=== PATIENT | female | born 1970 | race Caucasian/White ===

== ENCOUNTER → 2018-06-08 09:41 | Outpatient (CLI) | payer BC, SELFPAY ==
--- NOTE | 2018-06-08 09:41 | DI.REPORT_ITS ---
SYMPTOM/DIAGNOSIS: CHRONIC RIGHT SHOULDER PAIN, M25.511 RIGHT SHOULDER: 06/08 Five views were obtained. No bony or soft tissue abnormality seen.
== END ==
PROVIDERS: PCP Family Medicine; Visit Provider Family Medicine
DX: M25.511 Pain in right shoulder (principal); G89.29 Other chronic pain
CPT/HCPCS: 73030

== ENCOUNTER 2018-08-15 11:08 | Outpatient (CLI) | payer BC, SELFPAY ==
[2018-08-15 13:04] LABS: Abs Immature Grans 0.01 k/cumm (0.0-0.09); Absolute Basophil Count 0.04 k/cumm (0.0-0.2); Absolute Eosinophil Count 0.07 k/cumm (0.0-0.7); Absolute Lymphocyte Count 0.79 k/cumm (1.2-3.4); Absolute Monocyte Count 0.33 k/cumm (0.11-0.7); Absolute Neutrophil Count 3.49 k/cumm (1.2-6.7); Basophils % 0.8; Eosinophils % 1.5; HCT 39.4 % (36.0-46.0); HGB 12.8 g/dL (12.0-15.5); Immature Grans % 0.2; Lymphocytes % 16.7; Mean Corp. HGB Concentration 32.5 g/dL (32.0-36.0); Mean Corpuscular Hemoglobin 29.8 pg (27.0-33.0); Mean Corpuscular Volume 91.8 fL (80-95); Mean Platelet Volume 11.5 fL (8.0-11.0); Neutrophils % 73.8; Platelet Count 199 x1000/uL (130-400); RBC 4.29 m/cumm (4.00-5.20); White Blood Cell Count 4.73 k/cumm (4.4-10.8)
[2018-08-15 13:30] LABS: ALT 20 U/L (12-78); AST 16 U/L (15-37); Albumin 3.9 g/dL (3.4-5.0); Alkaline Phosphatase 71 U/L (46-116); Anion Gap 8.9 mmol/L (3-11); BUN 19 mg/dL (7-18); Bilirubin, Total 0.3 mg/dL (0.2-1.0); CO2 28.1 mmol/L (21.0-32.0); CREATININE 0.81 mg/dL (0.55-1.02); Calcium 9.4 mg/dL (8.5-10.1); Chloride 105 mmol/L (98-107); Cholesterol 247 mg/dL (50-200); Glucose 94 mg/dL (70-100); HDL Cholesterol 53 mg/dL (40-60); LDL CHOLESTEROL 164 mg/dL (<100); Potassium 4.2 mmol/L (3.5-5.1); Sodium 142 mmol/L (136-145); TSH (W/Ref FT4) 0.83 uIU/mL (0.358-3.74); Total Protein 7.1 g/dL (6.4-8.2); Triglyceride 185 mg/dL (30-150); Vitamin B12 1321 pg/mL (193-986)
== END 2018-08-15 11:28 ==
PROVIDERS: PCP Family Medicine; Visit Provider Family Medicine
DX: F32.9 Major depressive disorder, single episode, unspecified (principal); K51.90 Ulcerative colitis, unspecified, without complications; Z90.49 Acquired absence of other specified parts of digestive tract; Z00.00 Encounter for general adult medical examination without abnormal findings
CPT/HCPCS: 36415; 80053; 80061; 83721; 82607; 84443; 85025

== ENCOUNTER 2019-06-05 13:34 | Emergency (ER) | payer OTHER, SELFPAY ==
[2019-06-05 13:44] VITALS: BP 144/96; PULSE 111; RESP 20; TEMP 36.5; O2SAT 98
--- NOTE | 2019-06-05 13:49 | ED.GENADUL_ITS ---
Discharge Plan Disposition Patient Disposition: HOME Condition: Stable Discharge Details Chief Complaint: PsychEval Clinical Impression: Anxiety Primary Care Provider: Oneal Garcia ED Provider: Yani Helton Home Meds and New Rx's Prescriptions: Continued albuterol sulfate 90 mcg/actuation HFA aerosol inhaler 2 puff IH Q4H PRNRF: 0 venlafaxine 75 mg tablet extended release 24hr 75 mg PO DAILY Qty: 30 RF: 11 clonazepam 1 mg tablet 1 mg PO BID Qty: 60 RF: 5 multivitamin [Daily Multi-Vitamin] 1 EACH tablet 1 ea PO DAILY PRN RF: 0 cyanocobalamin (vitamin B-12) [Vitamin B-12] 1,000 MCG tablet 1,000 mcg PO DAILY Qty: 100 RF: 4 ferrous gluconate 325 MG tablet 325 mg PO BID Qty: 100 RF: 6 cholecalciferol (vitamin D3) [Vitamin D3] 2,000 UNIT capsule 1 cap PO DAILY RF: 0 venlafaxine 150 mg capsule,extended release 24hr 150 mg PO DAILY Qty: 30 RF: 11 cyclobenzaprine 5 mg tablet 5 - 10 mg PO TID PRN (Reason: muscle spasm) Qty: 60 RF: 0 No Action quetiapine 50 mg tablet 100 mg PO BID RF: 0 Discharge Instructions Instructions: Suicide Prevention for Adults (ED), Anxiety (ED) Additional Instructions: Please return immediately to the emergency department if you develop any new or worsening symptoms or if you become otherwise concerned. It is extremely important that you attend your scheduled appointment with your therapist this week, and also that you follow-up with your primary care doctor as scheduled. Referrals: Oneal Garcia [Primary Care Provider] - Discharge Data Discharge Date/Time-TO BE ENTERED AT DEPARTURE: 06/05/19 16:24 Medical Decision Making Roshni Hayes is a 49-year-old woman with a history of anxiety, depression, hyperlipidemia who presented to the emergency department with anxiety, feeling that she is crying uncontrollably after having upsetting discussions with her , also with suicidal thoughts last night. On exam patient is nontoxic- appearing, but is very tearful. She does calm down for brief periods and converses normally. Mild tachycardia, otherwise benign cardiopulmonary exam. Grossly nonfocal neurologic exam. Concern for anxiety, possible suicidal ideation. Doubt toxic ingestion. Exam/history is not consistent with ACS, PE, sepsis. Plan for EKG, screening labs, one-to-one observer, mental health consultation. Patient evaluated by mental health, who reports that patient contracted for safety and would like to go home at this time. Patient feels comfortable going to her own home, has a friend to help her should she need it. On my re assessment, patient is well and nontoxic appearing, pleasant, conversing normally. She reports that she feels much better at this point. No further tachycardia. Patient states that she occasionally has suicidal type thoughts as she did last night, but she states repeatedly that she would not actually harm herself. Patient reports that she will be going to her home where she will not be seeing her , who she states tends to trigger her anxiety. Patient's friend reports that she believes that patient is safe to go home at this time as well. I had a lengthy discussion with the patient regarding return to emergency department precautions, that she may return to the emergency department at any time, and importance of outpatient follow-up with both her therapist as scheduled this Wednesday and with her primary care doctor as scheduled on Wednesday. Patient verbalizes understanding the plan and is amenable. All questions were answered. Patient was discharged home with clear plan for outpatient follow-up. Medical Records Medical records reviewed: Yes I reviewed the patient's medical records. Lab Data Lab results reviewed: Yes I reviewed the patient's lab results. Laboratory Tests Range/Units 06/05/19 06/05/19 06/05/19 13:58 13:58 14:42 WBC (4.4-10.8) k/cumm RBC (4.00-5.20) m/cumm Hgb (12.0-15.5) g/dL Hct (36.0-46.0) % MCV (80-95) fL MCH (27.0-33.0) pg MCHC (32.0-36.0) g/dL RDW (11.7-14.6) % Plt Count (130-400) x1000/uL MPV (8.0-11.0) fL Immature Gran % Neutrophils % Lymphocytes % Monocytes % Eosinophils % Basophils % Absolute Neutrophils (1.2-6.7) k/cumm Absolute Lymphocytes (1.2-3.4) k/cumm Absolute Monocytes (0.11-0.7) k/cumm Absolute Eosinophils (0.0-0.7) k/cumm Absolute Basophils (0.0-0.2) k/cumm Sodium (136-145) mmol/L 140 Potassium (3.5-5.1) mmol/L 3.5 Chloride (98-107) mmol/L 104 Carbon Dioxide (21.0-32.0) mmol/L 25.4 Anion Gap (3-11) mmol/L 10.6 BUN (7-18) mg/dL 9 Creatinine (0.55-1.02) mg/dL 0.76 Estimated GFR/1.73 m2 (mL/min/1.73m2) >= 60.00 Glucose (70-100) mg/dL 86 Calcium (8.5-10.1) mg/dL 8.7 Total Bilirubin (0.2-1.0) mg/dL 0.2 AST (15-37) U/L 12 L ALT (12-78) U/L 24 Alkaline Phosphatase (46-116) U/L 74 Total Protein (6.4-8.2) g/dL 6.7 Albumin (3.4-5.0) g/dL 3.2 L Urine Color (Yellow) Yellow Urine Clarity (Clear) Clear Urine pH (5-8) 5.5 Ur Specific [place] (1.005-1.025) <= 1.005 Urine Protein (Negative) mg/dL Negative Urine Ketones (Negative) mg/dL Negative Urine Blood (Negative) Negative Urine Nitrite (Negative) Negative Urine Bilirubin (Negative) Negative Urine Urobilinogen (Up TO 0.2) EU/dL 0.2 Ur Leukocyte Esterase (Negative) Negative Urine Glucose (Negative) mg/dL Negative Urine Opiates Screen (Negative) Negative Urine Methadone Screen (Negative) Negative Acetaminophen (10-30) ug/mL < 2 L Ur Barbiturates Screen (Negative) Negative Ur Tricyclics Screen (Negative) Negative Ur Amphetamines Screen (Negative) Negative U Benzodiazepines Scrn (Negative) Negative Urine Cocaine Screen (Negative) Negative Ur THC Screen (Negative) Negative Ethyl Alcohol (<3) mg/dL 13.3 Range/Units 06/05/19 14:42 WBC (4.4-10.8) k/cumm 6.76 RBC (4.00-5.20) m/cumm 4.32 Hgb (12.0-15.5) g/dL 12.6 Hct (36.0-46.0) % 38.1 MCV (80-95) fL 88.2 MCH (27.0-33.0) pg 29.2 MCHC (32.0-36.0) g/dL 33.1 RDW (11.7-14.6) % 13.4 Plt Count (130-400) x1000/uL 182 MPV (8.0-11.0) fL 10.5 Immature Gran % 0.3 Neutrophils % 78.3 Lymphocytes % 12.9 Monocytes % 7.1 Eosinophils % 1.0 Basophils % 0.4 Absolute Neutrophils (1.2-6.7) k/cumm 5.29 Absolute Lymphocytes (1.2-3.4) k/cumm 0.87 L Absolute Monocytes (0.11-0.7) k/cumm 0.48 Absolute Eosinophils (0.0-0.7) k/cumm 0.07 Absolute Basophils (0.0-0.2) k/cumm 0.03 Sodium (136-145) mmol/L Potassium (3.5-5.1) mmol/L Chloride (98-107) mmol/L Carbon Dioxide (21.0-32.0) mmol/L Anion Gap (3-11) mmol/L BUN (7-18) mg/dL Creatinine (0.55-1.02) mg/dL Estimated GFR/1.73 m2 (mL/min/1.73m2) Glucose (70-100) mg/dL Calcium (8.5-10.1) mg/dL Total Bilirubin (0.2-1.0) mg/dL AST (15-37) U/L ALT (12-78) U/L Alkaline Phosphatase (46-116) U/L Total Protein (6.4-8.2) g/dL Albumin (3.4-5.0) g/dL Urine Color (Yellow) Urine Clarity (Clear) Urine pH (5-8) Ur Specific [place] (1.005-1.025) Urine Protein (Negative) mg/dL Urine Ketones (Negative) mg/dL Urine Blood (Negative) Urine Nitrite (Negative) Urine Bilirubin (Negative) Urine Urobilinogen (Up TO 0.2) EU/dL Ur Leukocyte Esterase (Negative) Urine Glucose (Negative) mg/dL Urine Opiates Screen (Negative) Urine Methadone Screen (Negative) Acetaminophen (10-30) ug/mL Ur Barbiturates Screen (Negative) Ur Tricyclics Screen (Negative) Ur Amphetamines Screen (Negative) U Benzodiazepines Scrn (Negative) Urine Cocaine Screen (Negative) Ur THC Screen (Negative) Ethyl Alcohol (<3) mg/dL ECG Data Attestation: I personally reviewed and interpreted this ECG (s) as follows: Interpretation: EKG shows sinus rhythm at 77, normal axis, normal intervals, nondiagnostic EKG HPI General Mode of arrival: ambulatory . Date/Time Provider Initiated Documentation: 06/05/19 13:37 . Limitations to Documentation: no limitations . Information obtained by: patient, RN notes reviewed and old records reviewed . HPI Narrative: Roshni Hayes is a 49 y/o woman with history of depression, anxiety, hyperlipidemia, ulcerative colitis status post colectomy presenting to the emergency department with anxiety. Patient is accompanied by her best friend, who also provides history. Patient and her best friend report that patient is going through divorce, and last night she had a discussion with her that was very upsetting for her. Patient texted her friend at that point, stating that she did not want to be in pain anymore and she was looking for the razor blades. Patient and her friend state that her friend was able to calm her down and patient felt better and went to bed. Upon waking this morning, patient had another upsetting conversation with her , and again began to have sobbing that she felt she couldn't control and anxiety. Patient reports that she has not attempted to harm herself either currently or in the past. Patient reports that she took her usual dose of clonazepam this morning, and then took another at noon for her anxiety. Patient reports that clonazepam did not help at all. Patient also has had 2 alcoholic drinks today. Denies recreational drug use or any other ingestion in an attempt to harm herself. Patient states that despite having brief suicidal thoughts last night, she does not have a plan to hurt herself and would not do so. Patient denies somatic complaint, no fever, no vomiting, no pain. No recent illness. She states that she does not feel suicidal, but cannot stop crying. Patient reports that she feels safe at home. She states that nobody is harming her. She denies hallucinations. Related Data Home Medications Medication Instructions Recorded Confirmed multivitamin [Daily Multi-Vitamin] 1 ea PO DAILY PRN 01/15/13 06/06/19 cyanocobalamin (vitamin B-12) 1,000 mcg PO DAILY #100 tab-cap 10/05/15 06/06/19 [Vitamin B-12] ferrous gluconate 325 mg PO BID #100 tab 12/21/15 06/06/19 cholecalciferol (vitamin D3) 1 cap PO DAILY 06/16/17 06/06/19 [Vitamin D3] albuterol sulfate 90 mcg/actuation 2 puff IH Q4H PRN gm 07/01/18 06/06/19 aerosol inhaler venlafaxine 150 mg 150 mg PO DAILY #30 cap 09/27/18 06/06/19 capsule,extended release 24 hr cyclobenzaprine 5 mg tablet 5 - 10 mg PO TID PRN #60 tab 11/29/18 06/06/19 clonazepam 1 mg tablet 1 mg PO BID #60 tab 02/28/19 06/06/19 venlafaxine 75 mg tablet,extended 75 mg PO DAILY #30 tab 02/28/19 06/06/19 release 24 hr quetiapine 50 mg tablet 100 mg PO BID tab 06/06/19 06/06/19 Previous Rx's Medication Instructions Recorded venlafaxine 150 mg 150 mg PO DAILY #30 cap 09/27/18 capsule,extended release 24 hr cyclobenzaprine 5 mg tablet 5 - 10 mg PO TID PRN #60 tab 11/29/18 clonazepam 1 mg tablet 1 mg PO BID #60 tab 02/28/19 venlafaxine 75 mg tablet,extended 75 mg PO DAILY #30 tab 02/28/19 release 24 hr Allergies Allergy/AdvReac Type Severity Reaction Status Date / Time No Known Allergies Allergy Unverified 06/06/19 14:48 General Stated Complaint: PsychEval FLY: 2 Review of Systems Review of Systems Constitutional: denies fevers Eyes: denies eye pain ENT: denies facial pain, dental pain, sore throat Cardiovascular: denies chest pain Respiratory: denies SOB, cough GI: denies abdominal pain, vomiting, diarrhea : denies flank pain MSK: denies back pain, neck pain, arthralgias, myalgias Neuro: denies headaches, numbness, weakness Psych: Reports suicidal thoughts last night without suicidal intent, denies hallucinations, homicidal ideation [facility] Surgical History (Updated 08/10/18 @ 14:35 by [facility] [place]) Arthroplasty of knee (~1995) Total colectomy (~1989) Family History Mother No problems noted. Father Depression Sister Essential hypertension Depression Brother Depression Grandfather Neoplasm Grandfather No problems noted. Grandmother Stroke Grandmother Heart disease Sister Depression Sister No problems noted. Son Asthma Daughter Depression Social History Smoking/Tobacco Use Status: Never Alcohol Intake: current Alcohol Intake frequency: a few times a week Drug use: Never Substance use type: does not use Household members: other Details: 4 current occupation: TEACHER Pets and animals: Yes Pets and animals: dog(s), bird(s), iguana(s) and farm animals Duration: 15-30 minutes/day Frequency: 3-4 times per week Seatbelt use: always Drive intox or ride w/intox local truck driver: No Working smoke detector in home: Yes Fire extinguisher in home: Yes Carbon monox detector in home: Yes Firearms in home: Yes Firearms unloaded and locked: Yes Do you feel safe in your relationship?: Yes Exam Narrative Exam Narrative: Constitutional: well and [id number], very tearful during conversation HENT: head atraumatic/normocephalic/normal inspection, mucous membranes moist Eyes: conjunctiva normal, sclera normal, pupils 3mm b/l Neck: no stridor, normal ROM, trachea midline Chest: normal inspection Resp: normal work of breathing, LCTAB Cardio: normal rate, normal rhythm, no murmur appreciated GI: abdomen soft, non-tender, non-distended Skin: warm, dry, normal color, no rash Neuro: alert, not altered, grossly non-focal, normal tone Ext: no edema Psych: Persistent crying during initial encounter, normal affect, normal behavior Course Vital Signs Temperature 36.5 C 06/05/19 13:44 Pulse 111 H 06/05/19 13:44 Respiratory Rate 20 06/05/19 13:44 Blood Pressure 144/96 H 06/05/19 13:44 Pulse Oximetry 98 06/05/19 13:44 Temperature 36.5 C 06/05/19 13:44 Temperature Source Temporal Artery Scan 06/05/19 13:44 Pulse 111 H 06/05/19 13:44 Respiratory Rate 20 06/05/19 13:44 Blood Pressure 144/96 H 06/05/19 13:44 Blood Pressure Position Sitting 06/05/19 13:44 Pulse Oximetry 98 06/05/19 13:44 Oxygen Delivery Method Room Air 06/05/19 13:44 Oxygen Flow Rate 0 06/05/19 13:44 Pain Level 0 06/05/19 13:44
[2019-06-05 14:17] LABS: Bilirubin Negative (Negative); Blood Negative (Negative); Clarity Clear (Clear); Glucose Negative (Negative); Ketones Negative (Negative); Leukocyte Esterase Negative (Negative); Nitrite Negative (Negative); Specific Gravity <= 1.005 (1.005-1.025); Urobilinogen 0.2 EU/dL (Up TO 0.2); pH 5.5 (5-8)
[2019-06-05 14:19] LABS: *AMPHETAMINES SCREEN URINE Negative (Negative); *BARBITURATES SCREEN URINE Negative (Negative); *BENZODIAZEPINES SCREEN URINE Negative (Negative); Cannabinoids THC Negative (Negative); Cocaine Screen,Urine Negative (Negative); METHADONE URINE SCREEN Negative (Negative); OPIATES URINE SCREEN Negative (Negative)
[2019-06-05 14:20] LABS: Tricyclic Antidepressants Negative (Negative)
[2019-06-05] MEDS: LORazepam 0.5 MG TAB PO (14:20)
[2019-06-05 14:48] LABS: Abs Immature Grans 0.02 k/cumm (0.0-0.09); Absolute Basophil Count 0.03 k/cumm (0.0-0.2); Absolute Eosinophil Count 0.07 k/cumm (0.0-0.7); Absolute Lymphocyte Count 0.87 k/cumm (1.2-3.4); Absolute Monocyte Count 0.48 k/cumm (0.11-0.7); Absolute Neutrophil Count 5.29 k/cumm (1.2-6.7); Basophils % 0.4; HCT 38.1 % (36.0-46.0); HGB 12.6 g/dL (12.0-15.5); Immature Grans % 0.3; Lymphocytes % 12.9; Mean Corp. HGB Concentration 33.1 g/dL (32.0-36.0); Mean Corpuscular Hemoglobin 29.2 pg (27.0-33.0); Mean Corpuscular Volume 88.2 fL (80-95); Mean Platelet Volume 10.5 fL (8.0-11.0); Monocytes % 7.1; Neutrophils % 78.3; Platelet Count 182 x1000/uL (130-400); RBC 4.32 m/cumm (4.00-5.20); RBC Distribution Width 13.4 % (11.7-14.6); White Blood Cell Count 6.76 k/cumm (4.4-10.8)
[2019-06-05 15:06] LABS: ALT 24 U/L (12-78); AST 12 U/L (15-37); Albumin 3.2 g/dL (3.4-5.0); Alkaline Phosphatase 74 U/L (46-116); Anion Gap 10.6 mmol/L (3-11); BUN 9 mg/dL (7-18); Bilirubin, Total 0.2 mg/dL (0.2-1.0); CO2 25.4 mmol/L (21.0-32.0); CREATININE 0.76 mg/dL (0.55-1.02); Calcium 8.7 mg/dL (8.5-10.1); Chloride 104 mmol/L (98-107); ETHANOL BLOOD 13.3 mg/dL (<3); Glucose 86 mg/dL (70-100); Potassium 3.5 mmol/L (3.5-5.1); Sodium 140 mmol/L (136-145); Total Protein 6.7 g/dL (6.4-8.2)
[2019-06-05 15:19] LABS: Acetaminophen < 2 ug/mL (10-30)
[2019-06-05] MEDS: Ibuprofen 400 MG TAB PO (16:22)
--- NOTE | 2019-06-05 16:34 | PDOC.MHCN ---
Date of service: 06/05/19 Time of Service: 15:14 Mental Health Crisis Note Presenting Issue How did you arrive at the ED and why did you come: Client was admitted into the ER, as they reported that they were having suicidal thoughts. Client was transported by her friend, to the ER as the friend had been in contact with the patient over the last few days and was very concerned when the patient shared that she was looking for razor blades. Patient shared that she did not want to but, wanted to stop the emotional pain that she was experiencing. Precipitating Factors Client shared that she has been experiencing depression for at least two years, her recent family dynamics, coupled with lack of sleep, have impacted her ability to cope/regulate. She shared that she thinks that she just had a breakdown earlier today, due to her ex . Patient shared that she had uncontrollable sobbing, and feeling of helplessness. Typically when she starts to feel this way, she will do as the doctor prescribes, and reach out to schedule an appointment with her therapist, PCP Dr. Martinez and take a Clonazepam if needed. This time it didn't work the Patient shared that the Clonazepam didn't work, this time, she felt no effect. Patients friend reports that she was searching for razor blades, to help her not feel the pain anymore. When asked to clarify; patient shared that she was not intending to kill herself, that she has bumps on her arms and that she has been known to remove them in the past, with a razor blade similar to what her doctor has done previously. Disposition BEHAVIOR: When first entering the room the client appeared to be crying, suffering from a headache and quiet. She allowed her friend to share the details of what brought her in today. Her friend did a great job and eventually the patient started to add to the conversation. The patient was forthright, open about the events that had led her to the ER. Towards the end of the assessment the patient was laughing and joking. EYE CONTACT: Client at first, made very little eye contact but, after some medicine for her headache was able to make appropriate eye contact with this functional tester typewriters. MOOD: Client appeared to be exhausted when first meeting with her, towards the end of the conversation she appeared to perk back up, and was laughing and making jokes. AFFECT: Somber, to calm, to motivated to start baby steps to help herself to feel better. APPETITE: Yes. SLEEP(trouble falling/staying asleep: Typically - 8:30PM to 5:00PM (patient recently drove to [place], 12 hours there and 12 hours back, they returned on Wednesday, currently exhausted.) Plan Patient is going to return home and stay in constant touch with her friend that brought her in to the ER today, patient has identified this individual as a huge support for her. She is going to make sure the sharp objects are out of sight and not accessible. Patient has a follow up with her PCP Dr. Martinez, [facility], on Wednesday. Patient also has an appointment scheudled with their therapist for this wednesday. Patient has agreed that she woudl like to have weekly appointments at this point. Patient shared that she is going to try to reimplment things that make her feel better when she is at her best (painting rocks with her son, getting ready for the school year, walking, and eating better). Provisional Diagnosis Major Depressive Disorder, recurrent, generalized anxiety disorder, hyperlipidemia, sciatica of right side Signature Clinician's Name/Title: Jenae Yin
[2019-06-05 17:25] LABS: Total Iron Binding Capacity 424 ug/dL (250-450)
== END 2019-06-05 16:24 | disposition home or self-care (01) ==
PROVIDERS: Emergency Provider Student in an Organized Health Care Education/Training Program; PCP Family Medicine
DX: F41.8 Other specified anxiety disorders (principal)
CPT/HCPCS: 36415; 80053; 80307; 81025; 93005; 99284; 80320; 80329; 81003; 83550; 85025; 93010

== ENCOUNTER 2019-11-02 14:33 | Emergency (ER) | payer BC, SELFPAY ==
[2019-11-02 14:36] VITALS: BP 128/63; PULSE 71; RESP 14; TEMP 36.5; O2SAT 96
--- NOTE | 2019-11-02 14:50 | W.ED.GENAD ---
Discharge Plan Disposition Patient Disposition: [facility] Condition: Stable Discharge Details Chief Complaint: PsychEval Clinical Impression: Depressive disorder Primary Care Provider: Oneal Garcia ED Provider: Wil Morris Home Meds and New Rx's Prescriptions: No Action albuterol sulfate 90 mcg/actuation HFA aerosol inhaler 2 puff IH Q4H PRNRF: 0 quetiapine 50 mg tablet 100 mg PO QHS RF: 0 venlafaxine 75 mg tablet extended release 24hr 75 mg PO DAILY Qty: 30 RF: 11 multivitamin [Daily Multi-Vitamin] 1 EACH tablet 1 ea PO DAILY PRN RF: 0 cyanocobalamin (vitamin B-12) [Vitamin B-12] 1,000 MCG tablet 1,000 mcg PO DAILY Qty: 100 RF: 4 ferrous gluconate 325 MG tablet 325 mg PO BID Qty: 100 RF: 6 cholecalciferol (vitamin D3) [Vitamin D3] 2,000 UNIT capsule 1 cap PO DAILY RF: 0 clonazepam 1 mg tablet 1 mg PO BID Qty: 60 RF: 5 venlafaxine 150 mg capsule,extended release 24hr 150 mg PO DAILY Qty: 30 RF: 11 Medical Decision Making 49 yo female with hx of depression comes in with increasing depression over months and vague Si. [facility] but needs medical clearance. Denies any fevers, chills, chest pain and has no focal neuro deficits and clear speech. Jessica alcohol or drug use. Has no findings on hx or exam to suggest underlying medical process, will order basic lab work and drug screening pt remains stable, labs unremarkable. Has bed placement at [facility] and will go by all terrain vehicle technician Differential Diagnosis Differential Diagnosis: depression, si Lab Data Lab results reviewed: Yes I reviewed the patient's lab results. HPI General Mode of arrival: ambulatory. Date/Time Provider Initiated Documentation: 11/02/19 14:42. Limitations to Documentation: no limitations. Information obtained by: patient. History of Present Illness 49 year old F presents to the emergency department with the chief complaint of depression, described as moderate, Patient reports no radiation. Patient started experiencing this month(s) (2) and it has been constant. No relieving factors improve symptom(s), No exacerbating factors reported . Patient did receive the following treatments prior to arrival, none Related Data Home Medications Medication Instructions Recorded Confirmed multivitamin [Daily Multi-Vitamin] 1 ea PO DAILY PRN 01/15/13 11/02/19 cyanocobalamin (vitamin B-12) 1,000 mcg PO DAILY #100 tab-cap 10/05/15 11/02/19 [Vitamin B-12] ferrous gluconate 325 mg PO BID #100 tab 12/21/15 11/02/19 cholecalciferol (vitamin D3) 1 cap PO DAILY 06/16/17 11/02/19 [Vitamin D3] albuterol sulfate 90 mcg/actuation 2 puff IH Q4H PRN gm 07/01/18 11/02/19 aerosol inhaler venlafaxine 75 mg tablet,extended 75 mg PO DAILY #30 tab 02/28/19 11/02/19 release 24 hr quetiapine 50 mg tablet 100 mg PO QHS tab 06/06/19 11/02/19 clonazepam 1 mg tablet 1 mg PO BID #60 tab 08/29/19 11/02/19 venlafaxine 150 mg 150 mg PO DAILY #30 cap 09/22/19 11/02/19 capsule,extended release 24 hr Previous Rx's Medication Instructions Recorded venlafaxine 75 mg tablet,extended 75 mg PO DAILY #30 tab 02/28/19 release 24 hr clonazepam 1 mg tablet 1 mg PO BID #60 tab 08/29/19 venlafaxine 150 mg 150 mg PO DAILY #30 cap 09/22/19 capsule,extended release 24 hr Allergies Allergy/AdvReac Type Severity Reaction Status Date / Time No Known Allergies Allergy Unverified 11/02/19 14:44 General Stated Complaint: PsychEval FLY: 2 Review of Systems All systems reviewed & are unremarkable except as noted in HPI and below Constitutional Constitutional: Denies chills and Denies fever(s) Cardiovascular Cardiovascular: Denies chest pain and Denies dyspnea Respiratory Respiratory: Denies cough and Denies dyspnea Gastrointestinal Gastrointestinal: Denies abdominal pain, Denies nausea and Denies vomiting Genitourinary Genitourinary: Denies dysuria Integumentary/Breasts Skin/Breast: Denies rash Endocrine Endocrine: Denies cold intolerance and Denies heat intolerance [facility] Surgical History (Updated 08/10/18 @ 14:35 by [employer] [place]) Arthroplasty of knee (~1995) Total colectomy (~1989) Family History Mother No problems noted. Father Depression Sister Essential hypertension Depression Brother Depression Grandfather Neoplasm COLON Grandfather , CAR ACCIDENT No problems noted. Grandmother Stroke Grandmother Heart disease Sister Depression Sister No problems noted. Son Asthma Daughter Depression Social History Smoking/Tobacco Use Status: Never Alcohol Intake: current Alcohol Intake frequency: 0-2 drinks per day Alcohol type: wine Drug use: Never Substance use type: does not use Household members: other Details: 4 current occupation: TEACHER Pets and animals: Yes Pets and animals: dog(s), bird(s), iguana(s) and farm animals Duration: 15-30 minutes/day Frequency: 3-4 times per week Seatbelt use: always Drive intox or ride w/intox stock driver: No Working smoke detector in home: Yes Fire extinguisher in home: Yes Carbon monox detector in home: Yes Firearms in home: Yes Firearms unloaded and locked: Yes Do you feel safe at home: Yes Do you feel safe in your relationship?: Yes Exam Const General: no acute distress Orientation: alert HENMT Head: normal to inspection Ears: external ears normal General nose exam: external nose normal Mouth: moist mucous membranes Eyes General: appearance normal, both eyes and all related structures Neck Neck: normal visual inspection Resp Effort & Inspection: normal respiratory effort and able to speak in complete sentences Cardio Rate: regular rate Skin General skin exam: no rashes or lesions noted Neuro General: alert and oriented x3 Extrem General: normal to inspection Psych Mental Status: mental status grossly normal Course Vital Signs Vital signs: Vital Signs Temperature 36.5 C 11/02/19 14:36 Pulse 71 11/02/19 14:36 Respiratory Rate 14 11/02/19 14:36 Blood Pressure 128/63 11/02/19 14:36 Pulse Oximetry 96 11/02/19 14:36 Temperature 36.5 C 11/02/19 14:36 Temperature Source Temporal Artery Scan 11/02/19 14:36 Pulse 71 11/02/19 14:36 Respiratory Rate 14 11/02/19 14:36 Respiratory Effort Non-Labored 11/02/19 14:40 Blood Pressure 128/63 11/02/19 14:36 Blood Pressure Position Sitting 11/02/19 14:36 Pulse Oximetry 96 11/02/19 14:36 Oxygen Delivery Method Room Air 11/02/19 14:36 Oxygen Flow Rate 0 11/02/19 14:36 Pain Level 0 11/02/19 14:36
--- NOTE | 2019-11-02 14:53 | PDOC.MHCN_ITS ---
Date of service: 11/02/19 Time of Service: 14:54 Mental Health Crisis Note Presenting Issue How did you arrive at the ED and why did you come: D arrived today via this clinician. Precipitating Factors D enodorses SI with plan. We have secured a bed at [facility] and just need the medical clearance. Disposition BEHAVIOR: Cooperative although periods of heavy sobbing and inability to speak. She is seeking an inpatient stay to help her to alleviate the SI and decrease the symptoms of her depression and anxiety. EYE CONTACT: fair to good MOOD: depressed, anxious and tearful AFFECT: flat APPETITE: poor SLEEP(trouble falling/staying asleep: fine as she takes medications. Plan d is accepted at [facility] we jsut need to secure medical clearance. Signature Clinician's Name/Title: Mis Calloway MS Emergency Services Clinician
[2019-11-02 15:01] LABS: Bilirubin Negative (Negative); Blood Negative (Negative); Clarity Clear (Clear); Glucose Negative (Negative); Ketones Negative (Negative); Leukocyte Esterase Negative (Negative); Nitrite Negative (Negative); Specific Gravity >= 1.030 (1.005-1.025); Urobilinogen 0.2 EU/dL (Up TO 0.2); pH 5.5 (5-8)
[2019-11-02 15:05] LABS: Abs Immature Grans 0.02 k/cumm (0.0-0.09); Absolute Basophil Count 0.04 k/cumm (0.0-0.2); Absolute Lymphocyte Count 0.89 k/cumm (1.2-3.4); Absolute Monocyte Count 0.44 k/cumm (0.11-0.7); Absolute Neutrophil Count 4.76 k/cumm (1.2-6.7); Basophils % 0.6; Eosinophils % 1.6; HCT 39.5 % (36.0-46.0); HGB 12.9 g/dL (12.0-15.5); Immature Grans % 0.3 %; Lymphocytes % 14.2; Mean Corp. HGB Concentration 32.7 g/dL (32.0-36.0); Mean Corpuscular Hemoglobin 29.7 pg (27.0-33.0); Mean Corpuscular Volume 90.8 fL (80-95); Mean Platelet Volume 10.9 fL (8.0-11.0); Neutrophils % 76.3; Platelet Count 201 x1000/uL (130-400); RBC 4.35 m/cumm (4.00-5.20); RBC Distribution Width 14.5 % (11.7-14.6); White Blood Cell Count 6.25 k/cumm (4.4-10.8)
[2019-11-02 15:17] LABS: PTT Activated 23.2 sec (21.0-31.4)
[2019-11-02 15:28] LABS: Salicylate < 2.8 mg/dL (2.8-20.0)
[2019-11-02 15:30] LABS: ALT 25 U/L (14-59); AST 21 U/L (15-37); Albumin 3.7 g/dL (3.4-5.0); Alkaline Phosphatase 75 U/L (46-116); Anion Gap 8.6 mmol/L (3-11); BUN 7 mg/dL (7-18); Bilirubin, Total 0.3 mg/dL (0.2-1.0); CO2 29.4 mmol/L (21.0-32.0); CREATININE 0.68 mg/dL (0.55-1.02); Calcium 9.1 mg/dL (8.5-10.1); Chloride 103 mmol/L (98-107); Glucose 97 mg/dL (74-106); Potassium 3.6 mmol/L (3.5-5.1); Sodium 141 mmol/L (136-145); Total Protein 7.4 g/dL (6.4-8.2)
[2019-11-02 15:42] LABS: Acetaminophen < 2 ug/mL (10-30)
[2019-11-02 15:50] LABS: *AMPHETAMINES SCREEN URINE Negative (Negative); *BARBITURATES SCREEN URINE Negative (Negative); *BENZODIAZEPINES SCREEN URINE POSITIVE (Negative); Cannabinoids THC POSITIVE (Negative); Cocaine Screen,Urine Negative (Negative); METHADONE URINE SCREEN Negative (Negative); OPIATES URINE SCREEN Negative (Negative); Tricyclic Antidepressants Negative (Negative)
[2019-11-02] MEDS: LORazepam 1 MG TAB PO (16:05)
[2019-11-02 16:07] LABS: ETHANOL BLOOD < 3.0 mg/dL (<3)
[2019-11-02 17:17] VITALS: BP 118/69; PULSE 86; RESP 18; TEMP 37.6; O2SAT 98
== END 2019-11-02 17:20 | disposition short-term general hospital (02) ==
LOC: ER 16:48
PROVIDERS: Emergency Provider Emergency Medicine; PCP Family Medicine
DX: F32.9 Major depressive disorder, single episode, unspecified (principal); R45.851 Suicidal ideations
CPT/HCPCS: 36415; 80053; 80307; 81025; 99285; 80320; 80329; 81003; 84443; 85025; 85610; 85730; 99284

== ENCOUNTER 2019-11-14 13:08 | Outpatient (CLI) | payer BC, OTHER, SELFPAY ==
--- NOTE | 2019-11-14 14:00 | DI.RAD_ITS ---
EXAM: XR SHOULDER RT COMPLETE 2+V CLINICAL HISTORY: right shouder pain M25.511 TECHNIQUE: COMPARISON: RIGHT SHOULDER COMPLETE from 06/08/2018 FINDINGS: Five views were obtained. No bony or soft tissue abnormality seen. IMPRESSION:
== END 2019-11-14 13:28 ==
PROVIDERS: PCP Family Medicine; Visit Provider Family Medicine
DX: M25.511 Pain in right shoulder (principal)
CPT/HCPCS: 73030

== ENCOUNTER 2019-11-14 16:29 | Outpatient (REF) | payer BC, OTHER, SELFPAY ==
--- NOTE | 2019-11-14 14:50 | PAPFT_PTH ---
PATIENT: Roshni Hayes LOC: [facility] U#:[id number] AGE/SX: 49/F ROOM: RE11/14/[address]: Maryana Morris NP : 1970 BED: DIS: 11/14/2019 SPEC #: [id number] RECD: 11/14/19 17:43 STATUS: LLOYD REMarianna #: [id number] ZARA: 11/14/19 14:[address]: Maryana Morris NP DEPT: [facility] Cytology RECD BY: Rosie Payton ENTERED: 11/14/19 17:43 SP TYPE: PAPFT OTHR DR: Oneal Garcia MD Tissues: 1 - CX/ENDOCX FOR PAP SMEARS Procedures: PAP THIN PREP/UVM Screening HPV DNA PROBE Comments: [id number] (CHLAMYDIA/GC)
[2019-11-15 13:35] LABS: Chlamydia Result Negative (Negative); GC Result Negative (Negative)
== END 2019-11-14 16:49 ==
LOC: LBN 16:29
PROVIDERS: PCP Family Medicine; Visit Provider Nurse Practitioner Women's Health
DX: Z12.4 Encounter for screening for malignant neoplasm of cervix (principal); Z11.3 Encounter for screening for infections with a predominantly sexual mode of transmission; Z11.51 Encounter for screening for human papillomavirus (HPV)
CPT/HCPCS: 87491; 87591; 88142; 87624

== ENCOUNTER 2019-11-21 00:44 | Outpatient (CLI) | payer BC, OTHER, SELFPAY ==
--- NOTE | 2019-11-21 15:34 | DI.US_ITS ---
EXAM: US PELVIS TRANSVAGINAL CLINICAL HISTORY: N93.0 AUB, N85.2 Enlarged Uterus TECHNIQUE: Ultrasound performed using standard protocol. Transabdominal and transvaginal exams wer e performed. COMPARISON: PELVIS TRANSVAG from 10/15/2015 FINDINGS: A septate uterus is again demonstrated, measuring 10.0 x 4.3 x 6.5 cm. The endometrial stripe measure s 11-12 millimeters in thickness and appears homogeneous. No fibroids are seen. A 3.6 centimeter cyst is noted on the right ovary. The left ovary is unremarkable. A 9 millimeter stone is noted at the up per pole of the left kidney. No free fluid or hydronephrosis is seen IMPRESSION: Septate uterus. No evidence of fibroids. 3.6 centimeter right ovarian cyst. Left nephrolithiasis.
== END 2019-11-21 01:04 ==
PROVIDERS: PCP Family Medicine; Visit Provider Nurse Practitioner Women's Health
DX: N85.2 Hypertrophy of uterus (principal); N93.9 Abnormal uterine and vaginal bleeding, unspecified; N83.291 Other ovarian cyst, right side; N20.0 Calculus of kidney
CPT/HCPCS: 76830; 76856

== ENCOUNTER 2019-12-06 12:59 | Outpatient (CLI) | payer BC, OTHER, SELFPAY ==
[2019-12-06 13:59] LABS: HCT 36.9 % (36.0-46.0); HGB 11.7 g/dL (12.0-15.5); Mean Corp. HGB Concentration 31.7 g/dL (32.0-36.0); Mean Corpuscular Hemoglobin 29.1 pg (27.0-33.0); Mean Corpuscular Volume 91.8 fL (80-95); Mean Platelet Volume 11.1 fL (8.0-11.0); Platelet Count 206 x1000/uL (130-400); RBC 4.02 m/cumm (4.00-5.20); RBC Distribution Width 14.2 % (11.7-14.6); White Blood Cell Count 5.19 k/cumm (4.4-10.8)
[2019-12-06 15:13] LABS: Anion Gap 8.1 mmol/L (3-11); BUN 11 mg/dL (7-18); CO2 25.9 mmol/L (21.0-32.0); CREATININE 0.82 mg/dL (0.55-1.02); Calcium 8.6 mg/dL (8.5-10.1); Chloride 108 mmol/L (98-107); Glucose 89 mg/dL (74-106); Potassium 4.1 mmol/L (3.5-5.1); Sodium 142 mmol/L (136-145)
[2019-12-06 15:14] LABS: HCG Quant, Pregnancy < 1 mIU/mL (1-3)
== END 2019-12-06 13:19 ==
PROVIDERS: PCP Family Medicine; Visit Provider Obstetrics & Gynecology Gynecology
DX: N92.6 Irregular menstruation, unspecified (principal); Z01.818 Encounter for other preprocedural examination; Z01.812 Encounter for preprocedural laboratory examination
CPT/HCPCS: 36415; 80048; 85027; 86850; 86900; 86901; 84702

== ENCOUNTER 2019-12-07 12:15 | Day surgery (SDC) | payer BC, OTHER, SELFPAY ==
[2019-12-06 12:23] VITALS: BP 120/79; PULSE 65; RESP 18; TEMP 36.8; O2SAT 95
[2019-12-07 12:25] VITALS: BP 138/77; PULSE 56; RESP 16; TEMP 36; O2SAT 96
[2019-12-07] MEDS: Lactated Ringers 1,000 ML 125 ML IV (14:00)
[2019-12-07] MEDS: Bupivacaine 0.25% Pres-Free 30 ML VIAL (14:59)
--- NOTE | 2019-12-07 15:06 | ENDOMET_PTH ---
PATIENT: Roshni Hayes LOC: [facility] U#:[id number] AGE/SX: 49/F ROOM: RE12/07/[address]: Sonja Garcia : 1970 BED: DIS: 12/07/2019 SPEC #: [id number] RECD: 12/07/19 16:57 STATUS: LLOYD REQ #: [id number] ZARA: 12/07/19 15:[address]: Sonja Garcia DEPT: Surgical Specimen RECD BY: Rosie Payton ENTERED: 12/07/19 17:03 SP TYPE: Endomet OTHR DR: Oneal Garcia MD Tissues: 1 - ENDOMETRIUM BX/CURRETTE 2 - ENDOMETRIUM BX/CURRETTE Procedures: GROSS AND MICRO LEVEL 4 Comments: [id number]
[2019-12-07] MEDS: Silver Nitrate Stick 1 EACH (15:16)
[2019-12-07 15:23] VITALS: BP 120/78; PULSE 54; RESP 12; TEMP 36.5; O2SAT 98
[2019-12-07 15:28] VITALS: BP 127/79; PULSE 52; RESP 13; TEMP 36.5; O2SAT 99
[2019-12-07 15:33] VITALS: BP 122/88; PULSE 54; RESP 12; TEMP 36.5; O2SAT 99
--- NOTE | 2019-12-07 15:44 | W.PM.DSUDISC ---
Discharge Plan Disposition Patient Disposition: HOME Condition: Fair Discharge Details Reason For Visit: AUB Attending Provider: Sonja Garcia Primary Care Provider: Oneal Garcia Home Meds and New Rx's Prescriptions: No Action albuterol sulfate 90 mcg/actuation HFA aerosol inhaler 2 puff IH Q4H PRNRF: 0 propranolol 20 mg tablet 20 mg PO BID RF: 0 norethindrone acetate 5 mg tablet 5 mg PO DAILY Qty: 60 RF: 0 venlafaxine 75 mg tablet extended release 24hr 75 mg PO DAILY Qty: 30 RF: 11 multivitamin [Daily Multi-Vitamin] 1 EACH tablet 1 ea PO DAILY PRN RF: 0 cyanocobalamin (vitamin B-12) [Vitamin B-12] 1,000 MCG tablet 1,000 mcg PO DAILY Qty: 100 RF: 4 ferrous gluconate 325 MG tablet 325 mg PO BID Qty: 100 RF: 6 cholecalciferol (vitamin D3) [Vitamin D3] 2,000 UNIT capsule 1 cap PO DAILY RF: 0 clonazepam 1 mg tablet 1 mg PO BID Qty: 60 RF: 5 venlafaxine 150 mg capsule,extended release 24hr 150 mg PO DAILY Qty: 30 RF: 11 amoxicillin 250 mg Capsule 250 mg PO TID RF: 0 quetiapine 25 mg tablet 25 mg PO BID RF: 0 ibuprofen 200 mg Tablet 600 mg PO Q6H PRNRF: 0 Discharge Instructions Stand Alone Forms: DSU Post Gynecology Surgery Activity:: Activity as Tolerated Diet:: As Tolerated Discharge Orders Discharge Orders: Discharge Order (Routine); Ordered 12/07/19 Ordered By: Sonja Garcia DS: Diagnosis Discharge Diagnosis (1) History of hysteroscopy: Status: Acute (2) Abnormal uterine bleeding (AUB): Status: Acute (3) Septate uterus: Status: Acute
[2019-12-07 15:48] VITALS: BP 123/86; PULSE 456; RESP 18; TEMP 36.5; O2SAT 96
[2019-12-07 16:35] VITALS: BP 124/47; PULSE 60; RESP 18; TEMP 36.6; O2SAT 95
--- NOTE | 2019-12-14 13:08 | ROE_ITS ---
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 Findings: Normal-appearing cervix with normal endocervical canal with an associated uterine septum leading to to separate uterine cavities each with a tubal ostia. Both cavities have multiple small polypoid structures comprising the endometrium. Procedure Description: Patient was brought to the operating room where she was placed in the dorsal supine position and monitored anesthesia care was administered without difficulty. She was then placed in the dorsallithotomy position in [facility] with SCDs in place. She was prepped and draped in the usual sterile fashion and bivalve speculum was placed in the vagina and the anterior lip of the cervix was infiltrated with 1 cc of quarter percent Marcaine with a paracervical block performed at the 4 and 8:00 positions using 5 cc in each area respectively. The cervix was then sequentially dilated to a maximum of 18 Haines. A diagnostic hysteroscope was placed into the endocervical canal with normal saline as distention medium. Is able to visualize both the right and left openings to the patient's septated uterus. Both cavities were inspected with the above-noted findings. The hysteroscope was removed and I was able to successfully curette each cavity for copious amounts of polypoid structures which were passed off of the operative field. Repeat inspection of the right and left uterine cavity is noted than to be sufficiently curetted and hemostatic. The tenaculum was removed from the patient's cervix with the site noted to be hemostatic. Instruments removed from the patient's vagina she was placed in the dorsal supine position, awakened, and transported recovery area in stable condition. All sponge lap needle counts are correct x2.
== END 2019-12-07 16:55 | disposition home or self-care (01) ==
PROVIDERS: PCP Family Medicine; Visit Provider Obstetrics & Gynecology Gynecology
PROC: 0UDB8ZZ Extraction of Endometrium, Via Natural or Artificial Opening Endoscopic (ICD-10-PCS; CPT 58558; principal; 2019-12-07 14:15)
DX: N93.9 Abnormal uterine and vaginal bleeding, unspecified (principal); Q51.20 Other doubling of uterus, unspecified; N85.01 Benign endometrial hyperplasia
CPT/HCPCS: 58558; 88305; J1100; J1885; J2001; J2250; J2405; J2704; J3010

== ENCOUNTER 2019-12-26 08:38 | Outpatient (CLI) | payer BC, OTHER, SELFPAY ==
--- NOTE | 2019-12-26 09:00 | DI.MAMMO_ITS ---
EXAM: MAMMO SCREENING CLINICAL HISTORY: screening Z12.39 TECHNIQUE: Mammograms were interpreted according to the usual protocol including computer analysis w [employer] CAD system, tomosynthesis and C-view imaging. COMPARISON: 2009 FINDINGS: The breasts are composed of heterogeneously dense fibroglandular densities, Breast Density category C . No suspicious masses or suspicious microcalcifications are seen. No skin thickening or abnormal axillary lymph nodes are seen. There has been no significant change from prior exams. IMPRESSION: BIRADS Category 1, negative mammogram. Yearly screening mammography is recommended. BREAST DENSITY: The mammogram demonstrates the patient's breast tissue is dense. Dense breast tissue is very common and is not abnormal but dense breast tissue can make it harder to find cancer on a ma mmogram. Also, dense breast tissue may increase breast cancer risk. This information about the result of the mammogram report was provided to the patient to raise their awareness. Use this report when y ou speak with the patient about their risks for breast cancer, which includes their family history. A t that time, you may recommend additional screening tests (Ultrasound or MRI) as they might be useful based on their risk. A negative radiographic report should not delay biopsy if a dominant or clinically suspicious mass is present. Up to ten percent of cancers are not identified on mammography. A negative report may reinforce clinical impression. Adenosis and dense breasts may obscure an underlying neoplasm. False positive reports average 6 to 10%.
== END 2019-12-26 08:58 ==
PROVIDERS: PCP Family Medicine; Visit Provider Nurse Practitioner Women's Health
DX: Z12.31 Encounter for screening mammogram for malignant neoplasm of breast (principal)
CPT/HCPCS: 77063; 77067

== ENCOUNTER 2020-01-09 09:30 | Outpatient (CLI) | payer BC, OTHER, SELFPAY ==
[2020-01-09 14:02] LABS: HCT 42.4 % (36.0-46.0); HGB 13.9 g/dL (12.0-15.5); Mean Corp. HGB Concentration 32.8 g/dL (32.0-36.0); Mean Corpuscular Hemoglobin 30.2 pg (27.0-33.0); Mean Platelet Volume 11.6 fL (8.0-11.0); Platelet Count 221 x1000/uL (130-400); RBC 4.61 m/cumm (4.00-5.20); RBC Distribution Width 14.4 % (11.7-14.6); White Blood Cell Count 6.07 k/cumm (4.4-10.8)
[2020-01-09 15:15] LABS: ALT 25 U/L (14-59); AST 16 U/L (15-37); Albumin 3.8 g/dL (3.4-5.0); Alkaline Phosphatase 65 U/L (46-116); Anion Gap 9.7 mmol/L (3-11); BUN 12 mg/dL (7-18); Bilirubin, Total 0.3 mg/dL (0.2-1.0); CO2 28.3 mmol/L (21.0-32.0); CREATININE 0.91 mg/dL (0.55-1.02); Calcium 9.4 mg/dL (8.5-10.1); Chloride 104 mmol/L (98-107); Glucose 98 mg/dL (74-106); HCG Quant, Pregnancy < 1 mIU/mL (1-3); Potassium 4.1 mmol/L (3.5-5.1); Sodium 142 mmol/L (136-145); Total Protein 7.2 g/dL (6.4-8.2)
== END 2020-01-09 09:50 ==
PROVIDERS: PCP Family Medicine; Visit Provider Obstetrics & Gynecology Gynecology
DX: N93.8 Other specified abnormal uterine and vaginal bleeding (principal); N85.8 Other specified noninflammatory disorders of uterus; Z01.818 Encounter for other preprocedural examination; Z01.812 Encounter for preprocedural laboratory examination
CPT/HCPCS: 36415; 80053; 85027; 86850; 86900; 86901; 84702

== ENCOUNTER 2020-01-09 12:00 | Day surgery (SDC) | payer BC, OTHER, SELFPAY ==
--- NOTE | 2020-01-09 21:08 | PDOC.ANES ---
Date of service: 01/09/20 Time of Service: 21:08 Anesthesia Note Report Anesthesia Note: Called to speak with Roshni in regards to possibly rescheduling her elective surgery. We discussed the ongoing omalley virus pandemic and steps we are taking at the hospital. This includes no visitor or support person will be allowed to stay in the hospital with her, and that the risk of being exposed or exposing others to the omalley virus although thought to be low is unknown. We discussed that if she did contract the omalley virus, her illness would likely be mild, although it could be life threatening. She verbalized understanding the risk and would like to proceed with surgery as scheduled.
== END 2020-01-09 12:20 ==
PROVIDERS: PCP Family Medicine; Visit Provider Obstetrics & Gynecology Gynecology
DX: R69 Illness, unspecified (principal); Y66 Nonadministration of surgical and medical care

== ENCOUNTER 2020-03-14 03:51 | Outpatient (CLI) | payer OTHER, BC, SELFPAY ==
[2020-03-14 09:16] LABS: HCT 40.9 % (36.0-46.0); HGB 13.8 g/dL (12.0-15.5); Mean Corp. HGB Concentration 33.7 g/dL (32.0-36.0); Mean Corpuscular Hemoglobin 31.2 pg (27.0-33.0); Mean Corpuscular Volume 92.5 fL (80-95); Platelet Count 209 x1000/uL (130-400); RBC 4.42 m/cumm (4.00-5.20); RBC Distribution Width 13.5 % (11.7-14.6); White Blood Cell Count 5.17 k/cumm (4.4-10.8)
[2020-03-14 10:07] LABS: ALT 31 U/L (14-59); AST 18 U/L (15-37); Albumin 3.4 g/dL (3.4-5.0); Alkaline Phosphatase 60 U/L (46-116); Anion Gap 8.4 mmol/L (3-11); BUN 10 mg/dL (7-18); Bilirubin, Total 0.3 mg/dL (0.2-1.0); CO2 27.6 mmol/L (21.0-32.0); CREATININE 0.96 mg/dL (0.55-1.02); Calcium 9.1 mg/dL (8.5-10.1); Calculated LDL 235 mg/dL (<100); Chloride 104 mmol/L (98-107); Cholesterol 325 mg/dL (<200); Glucose 99 mg/dL (74-106); HDL Cholesterol 27 mg/dL (40-60); Potassium 3.9 mmol/L (3.5-5.1); Sodium 140 mmol/L (136-145); Total Protein 6.8 g/dL (6.4-8.2); Triglyceride 318 mg/dL (<150)
[2020-03-14 10:09] LABS: HCG Quant, Pregnancy < 1 mIU/mL (1-3)
== END 2020-03-14 04:11 ==
PROVIDERS: PCP Family Medicine; Visit Provider Obstetrics & Gynecology Gynecology
DX: N93.8 Other specified abnormal uterine and vaginal bleeding (principal); E78.5 Hyperlipidemia, unspecified; F41.8 Other specified anxiety disorders; Z01.818 Encounter for other preprocedural examination; Z01.812 Encounter for preprocedural laboratory examination
CPT/HCPCS: 36415; 80053; 80061; 85027; 86850; 86900; 86901; 84702

== ENCOUNTER 2020-03-18 08:51 | Outpatient (CLI) | payer BC, OTHER, SELFPAY ==
[2020-03-19 12:31] LABS: COVID-19 RT-PCR UVMMC Result Negative (Negative)
== END 2020-03-18 09:11 ==
PROVIDERS: PCP Family Medicine; Visit Provider Obstetrics & Gynecology Gynecology
DX: Z11.59 Encounter for screening for other viral diseases (principal)
CPT/HCPCS: U0003

== ENCOUNTER 2020-03-20 10:43 | Observation (INO) | payer BC, OTHER, SELFPAY ==
[2020-03-20] VITALS (11 sets, daily range): BP systolic 99–156; BP diastolic 48–77; PULSE 63–69; RESP 16–18; TEMP 36.4–36.8; O2SAT 95–97
[2020-03-20] MEDS: Lactated Ringers 1,000 ML 125 ML IV ×4 (07:00→18:32)
[2020-03-20] MEDS: ceFAZolin 2 GM/50 ML BAG IVPB (07:39)
--- NOTE | 2020-03-20 09:28 | UTER_PTH ---
PATIENT: Roshni Hayes LOC: [facility] U#:[id number] AGE/SX: 50/F ROOM: OBS.306 RE03/20/[address]: Sonja Garcia : 1970 BED: A DIS: 03/21/2020 SPEC #: [id number] RECD: 03/20/20 12:25 STATUS: LLOYD REQ #: [id number] ZARA: 03/20/20 09:[address]: Sonja Garcia DEPT: Surgical Specimen RECD BY: Rosie Payton ENTERED: 03/20/20 12:26 SP TYPE: UTER OTHR DR: Oneal Garcia MD Tissues: 1 - UTERUS W OR W/O OVARIES(NOT TUMOR/PROLAPSE) Procedures: GROSS AND MICRO LEVEL 5 Comments: [id number]
--- NOTE | 2020-03-20 12:21 | NUR.NOTE ---
Admitted to room 306 via bed from PACU. Alert oriented, IV patent via R periph line in R hand. Peterson patent to BSD, blue colored urine present from surgery. SCD's bilat. Moving legs well with good strength.Nursing Note:
--- NOTE | 2020-03-20 12:46 | ROE_ITS ---
Operative Note Operative Note DATE OF PROCEDURE: 03/20/20 PRE-OP DIAGNOSIS: Abnormal uterine bleeding POST-OP DIAGNOSIS: same PROCEDURE: vaginal hysterectomy SURGEON: Sonja Garcia WAFER SUBSTRATE TESTER: Errol Abdi ANESTHESIA: GETA and spinal ESTIMATED BLOOD LOSS: 150 PATHOLOGY: other (uterus and cervix) COMPLICATIONS: None Patient was transported to: PACU Patient's condition: stable Indications: 50yo female with abnormal uterine bleeding not responding to medical management. 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 Findings: Nl appearing uterus and cervix. Previous tubal sterilization. Both fallopian tubes and ovaries not visualized secondary to adhesions of the omentum to adnexal structures and anterior and posterior serosa of the uterus. Procedure Description: Patient was taken to the operating room she is placed in the sitting position and spinal anesthesia was administered without difficulty. Preoperative antibiotics were administered in the surgical timeout was performed. SCDs were in place. She was then placed in the dorsal supine position and general laryngeal mask anesthesia was administered without difficulty. She is placed in the dorsal lithotomy position in yellowfin stirrups prepped and draped in the usual sterile fashion. Peterson catheter was inserted to gravity drainage. A weighted speculum was placed into the vagina Two single-tooth tenaculum were placed on the anterior and posterior uterine cervix respectively and the body of the cervix was then infiltrated with 1% Lidocaine with dilute Epinephrine and the cervix was circumferentially incised with the Bovie electrocautery. The bladder was then dissected off of the p ubovesical cervical fascia anteriorly with a moistened gauze. We were unable to enter the anterior cul-de-sac so his attention was turned to the posterior cul-de-sac where in a similar fashion the rectovaginal fascia was bluntly dissected and entry into the posterior cul-de-sac was performed sharply. There were adhesions of the omentum the posterior cul-de-sac which were dissected away from the serosa of the posterior lower uterine segment. A long weighted was placed in the posterior cul-de-sac and remained in place during the case. Both the right and left uterosacral/cardinal ligaments were shortened digitally,clamped, transected, and suture-ligated. This allowed entry into the anterior cul-de-sac through which a right angle retractor was placed to retract the bladder away from the operative field. The remaining right and left broad ligament was sequentially clamped cauterized and transected to the level of the uterine cornua. Any remaining attachments of the broad ligament to the uterus were clamped cauterized and transected. The fundus of the uterus was tethered to the omentum and required Bovie electrocautery and sharp dissection to mobilize the uterus and deliver it from the operative field. We were unable to visualize either adnexa secondary to omental adhesions to the pelvic sidewall. The site of the dissection of the omental adhesions was inspected noted be hemostatic The vaginal cuff was inspected noted be hemostatic and closed in a vertical fashion with a running locked suture of 0 Vicryl. A bladder cystoscopy was then performed with normal saline as the distention medium. Bladder surface was intact and E flux of indigocarmine dye was visualized from both ureteral orifices. The cystoscope was removed Peterson catheter was reinserted to gravity drainage patient was placed in the dorsal supine position, awakened from anesthesia extubated and transported recovery area in stable condition. All sponge lap needle counts correct x2
[2020-03-20] MEDS: diphenhydrAMINE 25 MG CAP PO (13:52)
[2020-03-20] MEDS: diphenhydrAMINE 50 MG/ML VIAL IVP (15:35)
[2020-03-20] MEDS: Ketorolac 30 MG/ML VIAL IVP ×2 (16:30→22:00)
[2020-03-20] MEDS: Normal Saline Flush 10 ML SYR IV (16:30)
[2020-03-20] MEDS: hydrOXYzine PAMOATE 25 MG CAP PO (18:30)
--- NOTE | 2020-03-20 18:52 | W.PM.PROGNOT ---
Date of Service Date of service: 03/20/20 Time of Service: 18:52 Assessment and Plan Assessment and plan (1) H/O vaginal hysterectomy: Status: Acute Assessment and plan: Stable after surgery (2) Pruritus: Status: Acute Assessment and plan: We will continue Naloxone infusion and oral meds for itching. Subjective Subjective Interval history since last seen: Patient denies pain but has experienced significant pruritus on her trunk back lower extremities. A naloxone drip was initiated with some decrease in her itching sensation on her trunk but the itching remains significant on her lower extremities. 2 doses of Benadryl were administered and will begin oral Vistaril. Exam Narrative Exam Narrative: Patient underwent a vaginal hysterectomy with bladder cystoscopy earlier in the day. She received a spinal for anesthesia and has had significant pruritus. Continue to try to ameliorate her symptoms. Const General: diaphoretic (Initially having significant vasomotor symptoms arrival to the floor) and other (Scratching) Orientation: alert, awake and oriented x3 Resp Effort & Inspection: normal respiratory effort Other: Peterson to gravity drainage clear blue-tinged urine Skin General skin exam: no rashes or lesions noted and other (Pruritus) Extrem General: normal to inspection (SCDs in place) Psych Appearance: other (Scratching but otherwise stable) Objective Objective Clinical Data: Vital Signs Temperature 97.9 F 03/20/20 16:00 Temperature Source Axillary 03/20/20 15:46 Pulse 63 03/20/20 16:00 Pulse Rhythm Regular 03/20/20 16:52 Respiratory Rate 18 03/20/20 16:00 Respiratory Effort 03/20/20 16:52 Respiratory Depth Normal 03/20/20 16:52 Respiratory Pattern Normal 03/20/20 16:52 Blood Pressure 102/60 03/20/20 16:00 Pulse Oximetry 97 03/20/20 16:00 Oxygen Delivery Method Room Air 03/20/20 16:00 Oxygen Flow Rate 0 03/20/20 16:00 Pain Level 3 03/20/20 16:00 Intake & Output 03/19/20 03/20/20 03/20/20 23:59 11:59 23:59 Intake Total 275.000 / 1147.916 872.916 / 1147.916 Balance 275.000 / 1147.916 872.916 / 1147.916 Weight 191 lb 5.78 oz Intake: IV 275.000 / 1147.916 872.916 / 1147.916 Other: Urine Color Pale Urine Appearance Clear Emesis Description None
[2020-03-20] MEDS: clonazePAM 1 MG TAB PO (20:05)
[2020-03-20] MEDS: Propranolol 20 MG TAB PO (20:06)
[2020-03-20] MEDS: QUEtiapine 50 MG TAB PO (20:08)
[2020-03-20] MEDS: clonazePAM 0.5 MG TAB PO (21:10)
[2020-03-20] MEDS: hydrOXYzine 25 MG/ML VIAL 50 MG IM (22:39)
[2020-03-21] VITALS: BP 99/55; PULSE 63; RESP 18; TEMP 36.7; O2SAT 97
[2020-03-21] MEDS: Ketorolac 30 MG/ML VIAL IVP (04:30)
[2020-03-21] MEDS: diphenhydrAMINE 25 MG CAP PO (05:35)
--- NOTE | 2020-03-21 06:38 | NUR.NOTE ---
Pt states her itching is better since the benadryl. tolerating oral liquids well. ARASH. manuel d/c'd at 0550. Nursing Note:
[2020-03-21 07:26] LABS: HCT 34.2 % (36.0-46.0); HGB 11.4 g/dL (12.0-15.5); Mean Corp. HGB Concentration 33.3 g/dL (32.0-36.0); Mean Corpuscular Hemoglobin 31.4 pg (27.0-33.0); Mean Corpuscular Volume 94.2 fL (80-95); Mean Platelet Volume 11.3 fL (8.0-11.0); Platelet Count 179 x1000/uL (130-400); RBC 3.63 m/cumm (4.00-5.20); RBC Distribution Width 13.3 % (11.7-14.6)
[2020-03-21] MEDS: clonazePAM 1 MG TAB PO (08:09)
[2020-03-21] MEDS: Cyanocobalamin 500 MCG TAB 1000 MCG PO (08:09)
[2020-03-21] MEDS: Propranolol 20 MG TAB PO (08:10)
[2020-03-21] MEDS: Cholecalciferol (Vitamin D3) 1,000 UNIT TAB 2000 UNITS PO (08:10)
[2020-03-21] MEDS: Venlafaxine 150 MG CAPCR PO (08:10)
[2020-03-21] MEDS: Multivitamin TAB 1 TAB PO (08:10)
[2020-03-21 08:16] VITALS: BP 96/59; PULSE 71; RESP 18; TEMP 36.5; O2SAT 97
--- NOTE | 2020-03-21 08:24 | DSE_ITS ---
Date of service: 03/21/20 Time of Service: 08:24 DS: Diagnosis Discharge Diagnosis (1) H/O vaginal hysterectomy: Status: Acute (2) Pruritus: Status: Acute Discharge Plan Disposition Patient Disposition: HOME Condition: Improving Discharge Details Reason For Visit: VAGINAL HYSTERECTOMY Admit Date/Time: 03/20/20 10:43 Admit Provider: Sonja Garcia Attending Provider: Sonja Garcia Primary Care Provider: Oneal Garcia [facility] Hospital Course Hospital Course: Patient was seen mid morning of surgery and underwent vaginal hysterectomy. Advised at the time of surgery: Normal-appearing uterus with serosal adhesions to omentum. We were unable to visualize the fallopian tubes or ovaries and the scheduled salpingectomy was not performed. Her postop course was unremarkable for postop pain however patient experienced significant pruritus felt to be secondary to Duramorph in her combined spinal general anesthesia. She received a variety of medications to ameliorate her symptoms which had improved but not completely dissipated by the morning of discharge. Plan at this time is to discharge the patient to home with a limited number of Percocet for postop pain, ibuprofen yzch-pff-bwqmhra 600 mg every 6 hours as needed for pain, Tylenol when not taking Percocet and sxwj-[id number]-dwdhhdc Benadryl every 6 hours as needed for itching. She was given discharge instructions regarding activity limitations and will follow-up in the office in approximately 2 weeks for a postop check. Home Meds and New Rx's Prescriptions: No Action albuterol sulfate 90 mcg/actuation HFA aerosol inhaler 2 puff IH Q4H PRNRF: 0 quetiapine 25 mg tablet 50 mg PO QHS Qty: 120 RF: 5 multivitamin [Daily Multi-Vitamin] 1 EACH tablet 1 ea PO DAILY PRN RF: 0 cyanocobalamin (vitamin B-12) [Vitamin B-12] 1,000 MCG tablet 1,000 mcg PO DAILY Qty: 100 RF: 4 ferrous gluconate 325 MG tablet 325 mg PO BID Qty: 100 RF: 6 cholecalciferol (vitamin D3) [Vitamin D3] 2,000 UNIT capsule 1 cap PO DAILY RF: 0 venlafaxine 150 mg capsule,extended release 24hr 150 mg PO DAILY Qty: 30 RF: 11 propranolol 20 mg tablet 20 mg PO BID Qty: 60 RF: 11 venlafaxine 75 mg tablet extended release 24 hr 75 mg PO DAILY Qty: 30 RF: 11 clonazepam 1 mg tablet 1 mg PO BID Qty: 60 RF: 5 ibuprofen 200 mg Tablet 600 mg PO Q6H PRNRF: 0 norethindrone acetate 5 mg Tablet 5 mg PO DAILY RF: 0 Discharge Instructions Additional Instructions: You will have a prescription for Percocet 5/325 1 tablet every 6 hours as needed for severe pain not improved by ibuprofen and/or Tylenol. Take 600 mg of rpsw-eos-xtjilcw ibuprofen every 6 hours as needed for pain. You may use Tylenol (acetaminophen) 500 mg every 6 hours for pain. Continue to take Benadryl 50 to 100 mg every 6 hours for itching. Keep your follow-up appoint with Dr. Garcia in approximately 2 weeks Stand Alone Forms: DSU Post Gynecology Surgery Activity:: Activity as Tolerated Equipment/Supplies:: No Equipment Needed Diet:: As Tolerated Discharge Orders Discharge Orders: Discharge Order (Routine); Ordered 03/21/20 Ordered By: Sonja Garcia DS: Summary Status at Discharge Functional status at discharge: independent ambulation Overall status at discharge: patient is progressing back to baseline Mental Status: mental status grossly normal Speech and Movement: restless (Scratching skin) Mood: anxious mood Affect: anxious affect Exam Narrative Exam Narrative: Patient experience significant total body pruritus after arrival to [facility] from her vaginal hysterectomy. She received 2 doses of p.o. and 1 dose of IM Vistaril, along with a naloxone drip and oral Benadryl to treat her symptoms. By the morning of surgery her symptoms had subsided but not completely resolved. She had minimal abdominal pain. Her Peterson catheter was removed and she was able to void spontaneously and was tolerating a regular diet. Const General: other (Itching and scratching while resting in bed) Nutritional Appearance: overweight Orientation: alert, awake and oriented x3 Resp Effort & Inspection: normal respiratory effort Auscultation: clear to auscultation bilaterally Cardio Rate: regular rate Rhythm: regular rhythm GI Inspection: normal to inspection Palpation: soft Skin General skin exam: no rashes or lesions noted (No evidence of a maculopapular rash.) Extrem General: normal to inspection and no clubbing, cyanosis or edema Psych Appearance: grossly normal Mental Status: mental status grossly normal Speech and Movement: restless (Scratching skin) Mood: anxious mood Affect: anxious affect Attitude: cooperative Thought Process: normal Thought Content: normal Insight: insight good Judgment: judgment good DS: Data Vitals/I&O Vitals and I&O: Vital Signs Temperature 97.7 F 03/21/20 08:16 Temperature Source Oral 03/21/20 08:16 Pulse 71 03/21/20 08:16 Pulse Rhythm Regular 03/21/20 08:17 Respiratory Rate 18 03/21/20 08:16 Respiratory Effort 03/21/20 08:17 Respiratory Depth Normal 03/21/20 08:17 Respiratory Pattern Normal 03/21/20 08:17 Blood Pressure 96/59 L 03/21/20 08:16 Pulse Oximetry 97 03/21/20 08:16 Oxygen Delivery Method Room Air 03/21/20 08:16 Oxygen Flow Rate 0 03/21/20 08:16 Pain Level 2 03/21/20 08:16 Intake & Output 03/20/20 03/20/20 03/21/20 11:59 23:59 11:59 Intake Total 275.000 / 1147.916 872.916 / 4072.005 8687 / 3200 Output Total 550 / 550 600 / 600 Balance 275.000 / 597.916 322.916 / 722.683 9087 / 2600 Weight 191 lb 5.78 oz Intake: IV 275.000 / 1147.916 872.916 / 4622.811 7370 / 3200 Output: Urine 550 / 550 600 / 600 Other: Urine Color Pale Green Yellow Urine Appearance Clear Clear Urine Odor None Emesis Description None Voiding Methods Toilet Data Completed and Pending Labs on day of discharge: Labs from last 24 hours 03/21/20 07:02 WBC 10.70 RBC 3.63 L Hgb 11.4 L Hct 34.2 L MCV 94.2 MCH 31.4 MCHC 33.3 RDW 13.3 Plt Count 179 MPV 11.3 [facility] Medical History (Updated 03/20/20 @ 18:57 by Sonja Garcia MD) Abnormal uterine bleeding (AUB) (Acute) 2014. 2019. Abnormal uterine bleeding (AUB) (Acute) Depressive disorder (Acute) with anxiety. quetiapine dose increase to 100mg hs and none in AM due to sedation and foggy memory. Fibromyalgia (Acute) History of hysteroscopy (Acute) 12/07/19. with D&C for AUB. Pruritus (Acute) PTSD (post-traumatic stress disorder) (Acute) Seasonal asthma (Acute) Septate uterus (Acute) Initially noted 2014 Surgical History (Updated 03/21/20 @ 08:26 by Sonja Garcia MD) H/O arthroscopy of left knee (Acute) H/O vaginal hysterectomy (Acute) Hx of section (Chronic) Hx of total colectomy (Acute) 1989 Social History (Updated 12/06/19 @ 18:33 by Sonja Garcia MD) Smoking/Tobacco Use Status: Never Alcohol Intake: current Alcohol Intake frequency: a few times a week Alcohol type: wine and hard liquor Drug use: Occasionally Substance use type: marijuana Details: alcohol: t-1, two drinks. Marijuana:t-4, couple hits Household members: other Details: 4 Number of Children: 2 current occupation: TEACHER Pets and animals: Yes Pets and animals: dog(s), bird(s), iguana(s) and farm animals Duration: 15-30 minutes/day Frequency: 3-4 times per week Seatbelt use: always Drive intox or ride w/intox pizza delivery driver: No Working smoke detector in home: Yes Fire extinguisher in home: Yes Carbon monox detector in home: Yes Firearms in home: Yes Firearms unloaded and locked: Yes Do you feel safe at home: Yes Do you feel safe in your relationship?: Yes History History 2 Para 2 Hx # Term Pregnancies Multiple births Hx # Pregnancies Ectopic pregnancies AB induced Hx Number of Living Children AB spontaneous
== END 2020-03-21 11:00 | disposition home or self-care (01) ==
LOC: OBS 14:01
PROVIDERS: Admitting Provider Obstetrics & Gynecology Gynecology; PCP Family Medicine; Visit Provider Obstetrics & Gynecology Gynecology
PROC: 0UT97ZZ Resection of Uterus, Via Natural or Artificial Opening (ICD-10-PCS; CPT 58260; principal; 2020-03-20 07:30)
DX: N92.5 Other specified irregular menstruation (principal); D25.0 Submucous leiomyoma of uterus; D25.2 Subserosal leiomyoma of uterus
CPT/HCPCS: 58262; 52000; 36415; 85027; NC; 88307; J0690; J1100; J1200; J1885; J2250; J2310; J2405; J2704; J3010; J3410

== ENCOUNTER 2020-09-27 03:24 | Outpatient (CLI) | payer MEDICAID, SELFPAY ==
[2020-09-28 17:07] LABS: COVID-19 RT-PCR Result NEGATIVE (Negative)
== END 2020-09-27 03:44 ==
PROVIDERS: PCP Family Medicine; Visit Provider Family Medicine
DX: Z20.828 Contact with and (suspected) exposure to other viral communicable diseases (principal)
CPT/HCPCS: U0003

== ENCOUNTER 2020-12-27 15:15 | Emergency (ER) | payer BC, MEDICAID, SELFPAY ==
--- NOTE | 2020-12-27 15:16 | ED.GENADUL_ITS ---
Discharge Plan Disposition Patient Disposition: HOME Condition: Stable Discharge Details Clinical Impression: Anxiety, Depressive disorder, Suicidal thoughts Primary Care Provider: Oneal Garcia ED Provider: Stacey Lee Home Meds and New Rx's Prescriptions: Continued albuterol sulfate 90 mcg/actuation HFA aerosol inhaler 2 puff IH Q4H PRNRF: 0 multivitamin [Daily Multi-Vitamin] 1 EACH tablet 1 ea PO DAILY PRN RF: 0 cyanocobalamin (vitamin B-12) [Vitamin B-12] 1,000 MCG tablet 1,000 mcg PO DAILY Qty: 100 RF: 4 cholecalciferol (vitamin D3) [Vitamin D3] 2,000 UNIT capsule 1 cap PO DAILY RF: 0 ferrous gluconate 325 mg (36 mg iron) tablet 325 mg PO DAILY Qty: 100 RF: 6 clonazepam 1 mg tablet 1 mg PO BID Qty: 60 RF: 5 venlafaxine 150 mg capsule,extended release 24hr 150 mg PO DAILY Qty: 30 RF: 5 quetiapine 25 mg tablet 25 mg PO QHS Qty: 30 RF: 11 triamcinolone acetonide 0.1 % cream 1 applic topical BID Qty: 15 RF: 0 sertraline 25 mg tablet 25 mg PO DAILY Qty: 30 RF: 2 ibuprofen 200 mg Tablet 600 mg PO Q6H PRNRF: 0 No Action metronidazole [Metrogel] 1 % gel 1 applic topical QHS Qty: 60 RF: 0 Discharge Instructions Instructions: Help Prevent Suicide (ED), Anxiety (ED) Additional Instructions: Please follow safety plan as set up by mental health. All sharps are to be turned over as medications to your neighbor. Mental health will be checking in daily. You may call at any time with any concerns at [phone]. They will help arrange for frequent therapy seasons. Please follow up with your primary care next week for reevaluation. Please call to schedule appointment. Take you medications as previously prescribed. For the time being, no work. Please hold off until cleared by your primary care doctor. If you develop thoughts of self harm, suicidal ideations or other new/worsening symptoms please seek care urgently once agian. Stand Alone Forms: Work Release Referrals: Oneal Garcia [Primary Care Provider] - Discharge Data Discharge Date/Time-TO BE ENTERED AT DEPARTURE: 12/27/20 18:37 Medical Decision Making <JERI Hester - Last Filed: 12/27/20 18:36> Patient is a 42-year-old female past medical history pertinent for depression, fibromyalgia, PTSD, and asthma. She is brought in for evaluation of suicidal thoughts. Patient has been here mainly admitted months 1 year ago. Patient has had 1 suicide attempt historically, attempt to harm himself via cutting. She reports that symptoms have been worsening over the past several months. Reports that she has contemplated cutting herself or overdosing on pills. She states that the thoughts of self-harm are intermittent and fairly vague. However, her depression has certainly been increasing. 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 More recently, she states that she had a break from school in November and was dreading returning to work the entire time. She states that this did seem to greatly exacerbate her anxiety and depression since her recent break. She denies hallucinations. Upcoming others. She reports drinking approximately 6 alcoholic beverages per night. Smokes marijuana. No recent change in medications. On exam, patient appears very anxious. She is crying frequently not initially was quite. She was able to slow down while talking. She has poor eye contact. Has minimal support system locally. I did have the patient anxiolytic which is expected, will give p.o. Ativan. Patient observer at bedside. Have requested consultation with mental health. Patient is doing much improved after 0.5 mg of Ativan. Patient spoke with mental health provider, Mis. She and the patient has been smoking historically. She remembered patient from evaluating her last year. At this time, she does not feel that the patient is in a threat to self or others. Rather, she feels that she can be discharged home with close follow-up. Plan is for the patient to give all of her medications to her neighbor and only take the medications that she is prescribed on a daily basis. I will discharge follow-up with your medicine for how. Plan is for mental health to touch base with patient on a daily basis. Patient will also be given emergency contact information if she develops any recurrence of her symptoms I feel that she needs to travel frequently. She will continue with her medications as prescribed. As work seems to be her largest trigger, work note will be given requesting that the patient be cleared back to work by her primary care. I have asked that she follow-up with her primary care provider next week. Patient does seem much calmer and much more upbeat when discussing this plan. Eye contact has improved. She denies any active suicidal ideation or thoughts of self-harm. Patient to be discharged home with safety plan in place. Return precautions were discussed. All of her questions and concerns were addressed and she is in agreement this plan. <Robert Helton MD - Last Filed: 01/17/21 22:57> Patient seen, examined, and discussed with JERI Lee. I agree with treatment plan as discussed/documented. HPI <JERI Hester - Last Filed: 12/27/20 18:36> General Mode of arrival: EMS . Date/Time Provider Initiated Documentation: 12/27/20 15:16 . Limitations to Documentation: no limitations . Information obtained by: patient, EMS, RN notes reviewed and old records reviewed . History of Present Illness 50 year old F presents to the emergency department with the chief complaint of suicidal ideations, anxiety, described as severe and similar to prior episodes, Patient started experiencing this month(s) and it has been constant. other things that improve symptom(s), (time away from work) Other factors that worsen symptoms (work) . Patient notes no other symptoms.. Patient did receive the following treatments prior to arrival, none Related Data Home Medications Medication Instructions Recorded Confirmed multivitamin [Daily Multi-Vitamin] 1 ea PO DAILY PRN 01/15/13 12/27/20 cyanocobalamin (vitamin B-12) 1,000 mcg PO DAILY #100 tab-cap 10/05/15 12/27/20 [Vitamin B-12] cholecalciferol (vitamin D3) 1 cap PO DAILY 06/16/17 12/27/20 [Vitamin D3] albuterol sulfate 90 mcg/actuation 2 puff IH Q4H PRN gm 07/01/18 12/27/20 aerosol inhaler ibuprofen 600 mg PO Q6H PRN 12/06/19 12/27/20 ferrous gluconate 325 mg (36 mg 325 mg PO DAILY #100 tab 08/12/20 12/27/20 iron) tablet clonazepam 1 mg tablet 1 mg PO BID #60 tab 09/27/20 12/27/20 venlafaxine 150 mg 150 mg PO DAILY #30 cap 10/13/20 12/27/20 capsule,extended release 24 hr quetiapine 25 mg tablet 25 mg PO QHS #30 tab 10/15/20 12/27/20 triamcinolone acetonide 0.1 % 1 applic TOPICAL BID #15 g 11/07/20 12/27/20 topical cream sertraline 25 mg tablet 25 mg PO DAILY #30 tab 12/16/20 12/27/20 metronidazole 1 % topical gel 1 applic TOPICAL QHS #60 g 01/01/21 01/01/21 Previous Rx's Medication Instructions Recorded clonazepam 1 mg tablet 1 mg PO BID #60 tab 09/27/20 venlafaxine 150 mg 150 mg PO DAILY #30 cap 10/13/20 capsule,extended release 24 hr quetiapine 25 mg tablet 25 mg PO QHS #30 tab 10/15/20 triamcinolone acetonide 0.1 % 1 applic TOPICAL BID #15 g 11/07/20 topical cream sertraline 25 mg tablet 25 mg PO DAILY #30 tab 12/16/20 metronidazole 1 % topical gel 1 applic TOPICAL QHS #60 g 01/01/21 Allergies Allergy/AdvReac Type Severity Reaction Status Date / Time No Known Allergies Allergy Verified 01/01/21 09:27 General FLY: 2 Review of Systems <JERI Hseter - Last Filed: 12/27/20 18:36> Constitutional Constitutional: Reports as per HPI, Denies chills, Denies fatigue, Denies fever(s), Denies headache(s) and Denies weakness Eyes Eyes: Denies change in vision ENT Ears, Nose, Mouth, and Throat: Denies headache(s) Cardiovascular Cardiovascular: Reports as per HPI, Denies chest pain, Denies lightheadedness, Denies dyspnea and Denies dyspnea on exertion Respiratory Respiratory: Reports as per HPI, Denies cough, Denies dyspnea and Denies dyspnea on exertion Gastrointestinal Gastrointestinal: Reports as per HPI, Denies abdominal pain, Denies change in bowel habits, Denies nausea and Denies vomiting Musculoskeletal Musculoskeletal: Denies abnormal gait Integumentary/Breasts Skin/Breast: Reports as per HPI and Denies rash Neurologic Neurologic: Denies abnormal movements, Denies abnormal speech, Denies abnormal gait, Denies headache(s), Denies paresthesias and Denies weakness Psychiatric Psychiatric: Reports anxiety, Reports depression, Reports difficulty concentrating, Reports mood swings, Reports panic attacks, Denies homicidal ideation and Reports suicidal ideation Endocrine Endocrine: Denies fatigue PFSH <JERI Hester - Last Filed: 12/27/20 18:36> Medical History (Updated 01/01/21 @ 09:44 by Andrés Schmidt DO) Abnormal uterine bleeding (AUB) 2014. 2019. Abnormal uterine bleeding (AUB) Depressive disorder with anxiety. quetiapine dose increase to 100mg hs and none in AM due to sedation and foggy memory. Fibromyalgia History of hysteroscopy 12/07/19. with D&C for AUB. Major depression Pruritus PTSD (post-traumatic stress disorder) Seasonal asthma Septate uterus Initially noted 2014 Surgical History H/O arthroscopy of left knee H/O vaginal hysterectomy 03/20/2020 to treat abnormal uterine bleeding. Ovaries conserved. Hx of section Hx of total colectomy 1989 Family History Father Depression Sister Essential hypertension Depression Brother Depression Grandfather Neoplasm COLON Grandmother Stroke Grandmother Heart disease Sister Depression Son Asthma Daughter Depression Essential hypertension Social History Smoking/Tobacco Use Status: Never Smoking risk assessment performed?: Yes Alcohol Intake: current Alcohol Intake frequency: a few times a week Alcohol type: wine and hard liquor Drug use: Occasionally Substance use type: marijuana Details: alcohol: t-1, two drinks. Marijuana:t-4, couple hits Household members: other Details: 4 Number of Children: 2 current occupation: TEACHER Pets and animals: Yes Pets and animals: dog(s), bird(s), iguana(s) and farm animals Duration: 15-30 minutes/day Frequency: 3-4 times per week Seatbelt use: always Drive intox or ride w/intox water taxi driver: No Working smoke detector in home: Yes Fire extinguisher in home: Yes Carbon monox detector in home: Yes Firearms in home: Yes Firearms unloaded and locked: Yes Do you feel safe at home: Yes Do you feel safe in your relationship?: Yes History History 2 Para 2 Hx # Term Pregnancies Multiple births Hx # Pregnancies Ectopic pregnancies AB induced Hx Number of Living Children AB spontaneous Exam <JERI Hester - Last Filed: 12/27/20 18:36> Const General: cooperative, no acute distress, well developed, well groomed, in distress mild (crying, sahking, tachypnic) and anxious Nutritional Appearance: average body habitus and well nourished Orientation: alert and awake Eyes General: appearance normal, both eyes and all related structures Resp Effort & Inspection: normal respiratory effort, able to speak in complete sentences and no respiratory distress Auscultation: clear to auscultation bilaterally, no rales, no rhonchi and no wheezes Cardio Rate: regular rate Rhythm: regular rhythm Heart Sounds: S1 normal and S2 normal Skin General skin exam: no rashes or lesions noted Trauma: no lacerations or abrasions Neuro General: patient alert and patient awake Cognition: normal cognition Speech: speech normal Gait: normal gait Psych Appearance: grossly normal and well kempt Mental Status: mental status grossly normal Speech and Movement: speech and movement normal Mood: anxious mood Affect: sad and anxious affect Attitude: cooperative Thought Process: normal Thought Content: suicidality Insight: fair Judgment: fair
[2020-12-27 15:17] VITALS: BP 151/102; PULSE 97; RESP 20; TEMP 36.9; O2SAT 98
[2020-12-27] MEDS: LORazepam 0.5 MG TAB PO (15:51)
[2020-12-27] MEDS: Ibuprofen 600 MG TAB PO (16:00)
[2020-12-27 16:03] LABS: Bilirubin Negative (Negative); Blood Negative (Negative); Clarity Clear (Clear); Glucose Negative (Negative); Ketones Negative (Negative); Leukocyte Esterase Negative (Negative); Nitrite Negative (Negative); Specific Gravity >= 1.030 (1.005-1.025); Urobilinogen 0.2 EU/dL (Up TO 0.2)
[2020-12-27 16:16] LABS: Abs Immature Grans 0.03 10^3/uL (0.0-0.06); Absolute Basophil Count 0.05 10^3/uL (0.0-0.2); Absolute Eosinophil Count 0.09 10^3/uL (0.0-0.7); Absolute Lymphocyte Count 1.21 10^3/uL (1.2-3.4); Absolute Monocyte Count 0.48 10^3/uL (0.1-0.8); Basophils % 0.7; Eosinophils % 1.2; HCT 47.5 % (36.0-46.0); HGB 16.5 g/dL (11.2-15.7); Immature Grans % 0.4; MCH 32.1 pg (27.0-33.0); MCHC 34.7 % (32.0-36.0); MCV 92.4 fL (80-95); MPV 11.3 fL (8.0-11.0); Monocytes % 6.3; Neutrophils % 75.4; Nucleated RBC 0 %; Platelet Count 228 10^3/uL (130-400); RBC 5.14 10^6/uL (3.93-5.22); RDW 11.5 % (11.7-14.6); RDW-SD 39.3 fL; WBC 7.56 10^3/uL (4.4-10.8)
[2020-12-27 16:17] LABS: *AMPHETAMINES SCREEN URINE Negative (Negative); *BARBITURATES SCREEN URINE Negative (Negative); *BENZODIAZEPINES SCREEN URINE POSITIVE (Negative); Cannabinoids THC POSITIVE (Negative); Cocaine Screen,Urine Negative (Negative); METHADONE URINE SCREEN Negative (Negative); OPIATES URINE SCREEN Negative (Negative)
[2020-12-27 16:22] LABS: Tricyclic Antidepressants Negative (Negative)
[2020-12-27 16:33] LABS: ALT 32 U/L (14-59); AST 22 U/L (15-37); Albumin 4.3 g/dL (3.4-5.0); Alkaline Phosphatase 102 U/L (46-116); Anion Gap 9.5 mmol/L (3-11); BUN 13 mg/dL (7-18); Bilirubin, Total 0.7 mg/dL (0.2-1.0); CO2 28.5 mmol/L (21.0-32.0); CREATININE 0.8 mg/dL (0.55-1.02); Calcium 9.5 mg/dL (8.5-10.1); Chloride 101 mmol/L (98-107); Glucose 110 mg/dL (74-106); Potassium 3.6 mmol/L (3.5-5.1); Sodium 139 mmol/L (136-145); TSH 1.45 uIU/mL (0.36-3.74); Total Protein 8.2 g/dL (6.4-8.2)
[2020-12-27 16:53] LABS: Salicylate < 2.8 mg/dL (<2.8)
[2020-12-27 16:57] LABS: ETHANOL BLOOD < 3.0 mg/dL (<3)
[2020-12-27 17:00] LABS: Acetaminophen < 2 ug/mL (10-30)
--- NOTE | 2020-12-27 18:12 | PDOC.CMSAFED ---
- If Service Date Differs Date of service: 12/27/20 Time of Service: 17:45 Care Management Safety Plan Status: Voluntary DISPOSITION: Roshni was assessed via zoom by MELCHOR Abebe crisis screener. She was able to enter into a safety plan, so she is being discharged home. She will follow up with her PCP and [facility] on an outpatient basis. Chief Complaint: Roshni is a 50 year old female sent to the ED today by her PCP due to increased depression and suicidal ideation. Per RN note, Roshni was hospitalized last year at the [facility]. CM will respond to ED to assess patient after patient has been medically cleared and assessed by screener. If screener deems patient meets criteria for psychiatric stabilization CM will facilitate interdepartmental huddle with [facility] screener for safety planning considerations and meet with patient to review [facility] policy and safety plan, establish individual wishes for treatment and maintain patient rights. In the interim; please note safety plan below to guide patient care while awaiting further assessment in the ED. SAFETY PLAN: 1. Will remain on suicide precautions and in paper clothes. 2. Will remain in room under direct supervision of one-on-one staff at all times provided by [employer], LIVIA, RETURNS PROCESSOR social media coordinator. 3. May have paper cups, plates, finger foods as well as a cardboard spoon with which to eat meals. 4. Follow [facility] Management of the Admitted Behavioral Health Patient policy. 5. Comfort bath system only. 6. No personal belongings 7. No visitors. 8. Phone use at RN discretion. 9. Due to VOLUNTARY status, if patient wishes to leave [facility], staff will contact [facility] Crisis Screener ([phone]) and On-Call Wire Setter ([phone]) as soon as possible. In the event of elopement, notify [facility] Police ([phone]). If deemed appropriate for inpatient psychiatric care, safety plan will be established with patient, and care team, to adhere to patient goals, identify restrictions based on behavioral status, address nutrition, and determine allowed personal belongings, tools for hygiene and personal care. As well plan will determine level of activity including ambulation, level of supervision, visitors, and determine privileges based on level of acuity, behaviors and level of engagement by patient.
--- NOTE | 2020-12-28 15:12 | PDOC.MHCN ---
Date of service: 12/27/20 Time of Service: 15:13 Mental Health Crisis Note Presenting Issue How did you arrive at the ED and why did you come: Pt arrived via ambulance after her PCP called for one so that she could get a MH assessment. Precipitating Factors Pt reported that she has thoughts of wanting to not be here and has stated she wants to . She admits that she had mentioned that she has thought about overdosing or cutting but those have been thoughts and nothing she will act on. Disposition BEHAVIOR: Pt is cooperative and engaged. She presents as open and honest. EYE CONTACT: Pt makes good eye contact. MOOD: Pt presents as depressed and anxious. AFFECT: Pt is tearful and her affect seems normal. APPETITE: Pt reported that she tends to be eating more than she should be currently. SLEEP(trouble falling/staying asleep: Pt reproted that her sleep has been poor. Plan Pt reported she knows she is in crisis when she is breaking down and can't control those breakdowns, she hyperventilates and cries. She deals with her crisis by taking her medications, breathing and trying to stay busy. She identified her two sisters, a neighbor and friend as her natural supports. She identified this clinician and her primary doctor as her professional supports. Pt reported she does nothing for self-care and that her reason for living is her son. Signature Clinician's Name/Title: Mis Calloway MS, [facility] Emergency Services Clinician
== END 2020-12-27 18:37 | disposition home or self-care (01) ==
PROVIDERS: Emergency Provider Physician Assistant; PCP Family Medicine
DX: F41.8 Other specified anxiety disorders (principal); R45.851 Suicidal ideations
CPT/HCPCS: 36415; 80053; 80307; 99285; 80320; 80329; 81003; 84443; 85025; 99284

== ENCOUNTER 2021-03-25 10:30 | Outpatient (REF) | payer BC, MEDICAID, SELFPAY ==
[2021-03-25 13:57] LABS: HGB 13.2 g/dL (11.2-15.7); MCV 93.9 fL (80-95); MPV 11.9 fL (8.0-11.0); Platelet Count 182 10^3/uL (130-400); RBC 4.26 10^6/uL (3.93-5.22); RDW 13.2 % (11.7-14.6); WBC 5.07 10^3/uL (4.4-10.8)
[2021-03-25 14:53] LABS: Calculated LDL 190 mg/dL (<100); Cholesterol 302 mg/dL (<200); GGT 63 U/L (5-55); HDL Cholesterol 44 mg/dL (40-60); Triglyceride 341 mg/dL (<150)
== END 2021-03-25 10:31 | disposition home or self-care (01) ==
LOC: LBN 10:30
PROVIDERS: PCP Emergency Medicine; Visit Provider Emergency Medicine
DX: E78.5 Hyperlipidemia, unspecified (principal); E61.1 Iron deficiency
CPT/HCPCS: 80061; 85027; 82977

== ENCOUNTER 2021-07-10 18:20 | Outpatient (REF) | payer MEDICAID, SELFPAY ==
[2021-07-10 19:21] LABS: Calculated LDL 140 mg/dL (<100); Cholesterol 246 mg/dL (<200); HDL Cholesterol 59 mg/dL (40-60); Triglyceride 236 mg/dL (<150)
== END 2021-07-10 18:21 | disposition home or self-care (01) ==
LOC: LBN 18:20
PROVIDERS: PCP Emergency Medicine; Visit Provider Emergency Medicine
DX: E78.5 Hyperlipidemia, unspecified (principal)
CPT/HCPCS: 80061

== ENCOUNTER 2022-01-08 02:01 | Outpatient (CLI) | payer BC, MEDICAID, SELFPAY ==
--- NOTE | 2022-01-08 08:00 | DI.RAD_ITS ---
Exam(s) XR CHEST 2V PA LATERAL EXAM: XR CHEST 2V PA LATERAL CLINICAL HISTORY: cough,R05.3. TECHNIQUE: 2D digital imaging was performed. COMPARISON: No exams were available for comparison FINDINGS: 2 views: Heart size is normal. The mediastinum is not widened. Lungs are clear. No infiltrates nor pleural effusions. IMPRESSION: No acute pulmonary findings. DATA REPOSITORY: RADIATION DOSE DELIVERED:
== END 2022-01-08 02:21 ==
PROVIDERS: PCP Family Medicine; Visit Provider Emergency Medicine
DX: R05.3 Chronic cough (principal)
CPT/HCPCS: 71046

== ENCOUNTER → 2022-04-21 02:04 | Outpatient (CLI) | payer BC, MEDICAID, SELFPAY ==
--- NOTE | 2022-04-21 08:00 | DI.RAD_ITS ---
Exam(s) XR HAND LT COMPLETE EXAM: XR HAND LT COMPLETE CLINICAL HISTORY: bilat hand pain,M79.641,. TECHNIQUE: 2D digital imaging was performed of the left hand. Three views were obtained. AP, later al and oblique views were obtained. COMPARISON: No exams were available for comparison FINDINGS: BONES: No acute fracture is present. No bony destructive lesion is seen. JOINTS: No dislocation present. Mild degenerative changes are seen in the interphalangeal joints. SOFT TISSUE: Normal. IMPRESSION: Mild degenerative changes of the left hand. DATA REPOSITORY: RADIATION DOSE DELIVERED:
--- NOTE | 2022-04-21 08:00 | DI.RAD_ITS ---
Exam(s) XR HAND RT COMPLETE EXAM: XR HAND RT COMPLETE CLINICAL HISTORY: bilat hand pain,M79.641,M25.531. TECHNIQUE: 2D digital imaging was performed of the right hand. Three images were obtained. AP, late ral and oblique views were obtained. COMPARISON: No exams were available for comparison FINDINGS: BONES: No acute fracture is present. No bony destructive lesion is seen. JOINTS: No dislocation present. Mild spurring is seen at the DIP joints of the 4th and 5th fingers. SOFT TISSUE: Normal. IMPRESSION: Mild degenerative changes of the right hand. DATA REPOSITORY: RADIATION DOSE DELIVERED:
--- NOTE | 2022-04-21 08:00 | DI.RAD_ITS ---
Exam(s) XR SHOULDER RT COMPLETE 2+V EXAM: XR SHOULDER RT COMPLETE 2+V CLINICAL HISTORY: right shoulder pain,M25.511. TECHNIQUE: 2D digital imaging was performed of the right shoulder. Five images were obtained. AP, Grashey, Y-view and axillary views were obtained. COMPARISON: CR XR SHOULDER RT COMPLETE 2+V from 11/14/2019 FINDINGS: BONES: No acute fracture is present. No bony destructive lesion is seen. JOINTS: No dislocation present. SOFT TISSUE: Normal. IMPRESSION: Unremarkable radiographs of the right shoulder. DATA REPOSITORY: RADIATION DOSE DELIVERED:
== END ==
PROVIDERS: PCP Family Medicine; Visit Provider Family Medicine
DX: M25.511 Pain in right shoulder; M79.641 Pain in right hand; M79.642 Pain in left hand; M15.1 Heberden's nodes (with arthropathy)
CPT/HCPCS: 73030; 73130

== ENCOUNTER 2022-05-27 09:25 | Outpatient (REF) | payer MEDICAID, SELFPAY ==
--- NOTE | 2022-05-27 08:50 | SKI_PTH ---
PATIENT: Roshni Hayes LOC: [facility] U#:[id number] AGE/SX: 52/F ROOM: RE05/27/[address]: Nadeem Garcia MD : 1970 BED: DIS: 05/27/2022 SPEC #: [id number] RECD: 05/27/22 12:20 STATUS: [place] REQ #: [id number] ZARA: 05/27/22 08:[address]: Nadeem Garcia DEPT: Surgical Specimen RECD BY: Rosie Payton ENTERED: 05/27/22 12:21 SP TYPE: REYNALDO ARIAS DR: Rachel Olson Tissues: 1 - SKIN BIOPSY(SHAVE/PUNCH) Procedures: GROSS AND MICRO LEVEL 3 Comments: [id number]
== END 2022-05-27 09:26 | disposition home or self-care (01) ==
LOC: LBN 09:25
PROVIDERS: PCP Family Medicine; Visit Provider Surgery
DX: D17.1 Benign lipomatous neoplasm of skin and subcutaneous tissue of trunk (principal)
CPT/HCPCS: 88304; 88305

== ENCOUNTER → 2022-06-03 01:57 | Outpatient (CLI) | payer MEDICAID, SELFPAY ==
--- NOTE | 2022-06-03 07:00 | DI.MAMMO_ITS ---
Exam(s) MAMMO SCREENING EXAM: MAMMO SCREENING CLINICAL HISTORY: screening,z12.39 TECHNIQUE: Mammograms were interpreted according to the usual protocol including computer analysis w [facility] CAD system, tomosynthesis and C-view imaging. COMPARISON: FINDINGS: The breasts are heterogeneously dense. No dominant mass or clumped microcalcification is identified in either breast. The current examination is compared with previous examination of December 2019 and ere has been no gross interval change in appearance in comparison with the prior study. IMPRESSION: No specific evidence of malignancy at this time. Routine screening examinations are suggested at yea rly intervals in this age group according to the ACS ACR guidelines. BI-RADS Category 1 - Negative Breast Density - Category C - Heterogeneously dense
== END ==
PROVIDERS: PCP Family Medicine; Visit Provider Obstetrics & Gynecology Gynecology
DX: Z12.31 Encounter for screening mammogram for malignant neoplasm of breast (principal); R92.8 Other abnormal and inconclusive findings on diagnostic imaging of breast
CPT/HCPCS: 77063; 77067

== ENCOUNTER 2022-12-07 00:33 | Outpatient (CLI) | payer MEDICAID, SELFPAY ==
--- NOTE | 2022-12-07 07:00 | DI.MRI_ITS ---
Exam(s) MR UPPER JOINT RT WO EXAM: MR UPPER JOINT RT WO CLINICAL HISTORY: right shoulder pain x 8 mo,m25.511. TECHNIQUE: Multiplanar multisequence MRI was performed. COMPARISON: None. FINDINGS: BONES: There is no fracture or contusion pattern. Red marrow reconversion proximal humeral shaft.. Small degenerative subchondral cyst humeral head. JOINTS:The acromioclavicular joint is normal. The glenohumeral joint is normal. TENDONS: Supraspinatus: Unremarkable. Infraspinatus: Unremarkable. Subscapularis: Unremarkable. Teres Minor: Unremarkable. Biceps and [place]: Unremarkable. MUSCLES: Unremarkable. GLENOID LABRUM: Unremarkable on this noncontrast examination. SOFT TISSUES: Unremarkable. OTHER: Subacromial and subdeltoid bursae show no significant fluid.. IMPRESSION: Unremarkable MRI of the right shoulder. DATA REPOSITORY:
== END 2022-12-07 00:53 ==
LOC: DI 00:33
PROVIDERS: PCP Family Medicine; Visit Provider Family Medicine
DX: M25.511 Pain in right shoulder (principal)
CPT/HCPCS: 73221